=== PATIENT | male | born 1965 | race Caucasian/White ===

== ENCOUNTER 2017-12-18 08:34 | Day surgery (SDC) | payer MEDICAID ==
[2017-12-10 10:53] VITALS: BMI 32.5
[2017-12-18] MEDS ORDERED: Midazolam 2 MG/2 ML VIAL ONE (09:55)
[2017-12-18] MEDS ORDERED: Propofol 10 mg/ml Inj (20 ML) ONE ×2 (09:55→11:34)
[2017-12-18] MEDS ORDERED: ceFAZolin 1 gm in NS 2 GM/200 ML BAG IVPB ONE (10:03)
[2017-12-18] MEDS ORDERED: Rocuronium 10 mg/ml (10 ml) ONE (10:50)
[2017-12-18] MEDS ORDERED: Phenylephrine 10 mg/ml Inj ONE (10:50)
[2017-12-18] MEDS ORDERED: Lidocaine Hydrochloride 5 ML INJ ONE (10:50)
[2017-12-18] MEDS ORDERED: ePHEDrine 50 mg/ml Inj ONE (10:50)
[2017-12-18] MEDS ORDERED: Succinylcholine Chloride 20 mg/ml Syr (5 ml) IV ONE (10:50)
[2017-12-18] MEDS ORDERED: Neostigmine Methylsulfate 3mg/3ml Syringe IV ONE (11:45)
[2017-12-18] MEDS ORDERED: Oxycodone/Acetaminophen 5/325 mg Tab PO PRN (11:47)
--- NOTE | 2017-12-18 11:47 | PCM.SURG1 ---
Surgeon's Initial Post Op Note - Surgeon's Notes Surgeon: Dr. Aaron Rough Rounder: Dr. Sanz Type of Anesthesia: General Endo Pre-Operative Diagnosis: Recurrent Incisional Hernia Operative Findings: same Post-Operative Diagnosis: same Operation Performed: Incisional hernia repair, with mesh Specimen/Specimens Removed: hernia sac/old mesh Estimated Blood Loss: EBL {In ML}: 10 Blood Products Given: N/A Drains Used: No Drains Post-Op Condition: Good Date of Surgery/Procedure: 12/18/17 Time of Surgery/Procedure: 11:46
[2017-12-18] MEDS ORDERED: HYDROmorphone 0.5 mg/0.5 ml ISec ONE (11:53)
[2017-12-18] MEDS: HYDROmorphone 0.5 mg/0.5 ml ISec IVP PRN ×3 (11:55→12:33)
[2017-12-18] MEDS ORDERED: Lactated Ringer's 1,000 ML IV ONE (14:00)
[2017-12-18 15:58] VITALS: BP 150/75; PULSE 89; RESP 18; TEMP 97.8; O2SAT 98
--- NOTE | 2017-12-18 23:19 | OP ---
PROCEDURE DATE: 12/18/2017 PREOPERATIVE DIAGNOSIS: Recurrent umbilical hernia. POSTOPERATIVE DIAGNOSIS: Recurrent umbilical hernia. PROCEDURE: Repair of recurrent umbilical hernia with mesh. SURGEON: Guanako Aaron MD WASTE COLLECTOR: Dr. Sanz. TYPE OF ANESTHESIA: General. ANESTHESIA ADMINISTERED BY: Dr. Colleen CRNA DESCRIPTION OF OPERATION: With the patient in the supine position, under adequate general anesthesia, the abdomen was prepped and draped in the usual sterile manner. The patient was noted to have a curved scar along the upper edge of the umbilicus with what is felt like approximately a 2-to 3-inch fascial defect deep to this. A midline incison was made, centered at the umbilicus and extending several inches above and below and passing to the left of the edge of the umbilicus. This was taken down through the full thickness of skin. The umbilical skin was then sharply dissected off the underlying hernia sac as was the skin just above and below the area of the defect. The sac was opened and with traction from within, freed from the fascia and subcutaneous tissue circumferentially. The sac was fairly thick and appeared to consist of the previously placed mesh from the patient's previous hernia repair. There are one or two residual sutures that are visible which appeared to be possibly Dacron type sutures. There was no bowel incarcerated within the hernia at the time of surgery, and once the defect had been opened, palpations circumferentially did not reveal any adhesions to the anterior abdominal wall for distance circumferentially from the defect. When the mesh had been totally excised at the level of the abdominal wall, the defect was noted to measure approximately 3 inches with a relatively round configuration. A 5.4 x 7 inch Ventrio Hernia Patch was selected for the repair and this was placed into the defect in a vertical orientation. Sutures were placed transfascially to the outer pocket of mesh at the upper and lower ends and then circumferentially and tacks were then placed from within as far as possible to maintain full extension of the mesh with care taken that there was no folding or freezing of the edges. The defect was well covered at this point and the mesh was fixed again with additional 0 Vicryl sutures as well, and once the mesh had been completely placed, it was noted that the fascia and edges of the hernia sac would be easily approximated in a transverse direction to completely cover the mesh, and this was performed with running suture of 0 Vicryl. The subcutaneous tissue was irrigated, the base of the umbilicus was tacked down to the fascial closure with a 4-0 Vicryl suture and some of the subcutaneous tissue was reapproximated with interrupted 4-0 Vicryl sutures as well. The skin was closed with kamaljit. Dry sterile dressing was applied. The patient tolerated the procedure well and transferred to recovery room in stable condition. Estimated blood loss for the procedure was 10 mL. Guanako Aaron MD
== END 2017-12-18 16:03 | disposition home or self-care (01) ==
LOC: C.SDS 08:34
PROVIDERS: ATTEND Specialist
DX: K42.9 Umbilical hernia without obstruction or gangrene (principal)
CPT/HCPCS: 49585; 88302; C1781; J0131; J0690; J1170; J1885; J2250; J2370; J2704; J2710; J3010; J7120

== ENCOUNTER 2019-02-04 20:54 | Inpatient (IN) | payer MEDICAID ==
[2019-02-04 20:55] VITALS: BMI 32.8
--- NOTE | 2019-02-04 21:26 | C.PDOC ---
History Of Present Illness 53 yr old male w/ hx of Anxiety, Arthritis, Bronchitis, HTN, Hypercholesterolemia, ventral hernia p/w abdominal pain. Pt notes constipation, abdominal pain, nausea and vomiting. He notes x3d of constipation. He notes x2 episodes of non-bilious, non-bloody vomiting. He notes trying stool softners, enemas for his constipation without much relief. He notes that he went to see his pmd today for abdominal pain. He was given lactulose to try at home, did not take it and came to ER for further eval. He denies any other complaints. Time Seen by Provider: 02/04/19 21:26 Chief Complaint (Nursing): Abdominal Pain Past Medical History Vital Signs: Last Vital Signs Temp 98.5 F 02/04/19 21:10 Pulse 77 02/04/19 21:10 Resp 20 02/04/19 21:10 BP 147/98 H 02/04/19 21:10 Pulse Ox 97 02/04/19 21:10 Primary Care Provider: Yuriy Bahena R - Medical History PMH: Anxiety, Arthritis, Bronchitis, HTN, Hypercholesterolemia Denies: Atrial Fibrillation, CAD, Chronic Kidney Disease Surgical History: Endoscopy, Hernia Repair (ventral on 12/18/2017) Family History: States: Unknown Family Hx - Social History Hx Alcohol Use: Yes Hx Substance Use: No - Immunization History Hx Influenza Vaccination: No Review Of Systems Constitutional: Negative for: Fever, Chills, Sweats, Weakness, Malaise Eyes: Negative for: Pain, Vision Change ENT: Negative for: Ear Pain, Ear Discharge, Nose Pain, Nose Discharge, Nose Congestion, Mouth Pain, Mouth Swelling Cardiovascular: Negative for: Chest Pain, Palpitations, Orthopnea, Paroxysmal Noc. Dyspnea, Edema, Light Headedness Respiratory: Negative for: Cough, Shortness of Breath, Hemoptysis, SOB with Excertion, Pleuritic Pain Gastrointestinal: Positive for: Nausea, Abdominal Pain, Constipation. Negative for: Vomiting, Diarrhea, Melena, Hematochezia, Hematemesis Genitourinary: Negative for: Dysuria, Frequency, Incontinence, Hematuria, Penile Discharge, Scrotal Pain Musculoskeletal: Negative for: Neck Pain, Shoulder Pain Skin: Negative for: Rash, Lesions Neurological: Negative for: Weakness, Numbness, Headache Psych: Negative for: Anxiety, Depression, Psychosis, Suicidal ideation Physical Exam - Physical Exam Appears: Well, Non-toxic, No Acute Distress, Other (playing on his phone while being evaluted) Skin: Normal Color, Warm, Dry Head: Atraumatic, Normacephalic Eye(s): bilateral: Normal Inspection, PERRL, EOMI Nose: Normal, No Flaring, No Discharge Oral Mucosa: Moist Tongue: Normal Appearing Teeth: Normal Dentition Gingiva: Normal Appearing Throat: Normal, No Erythema, No Exudate, No Drooling, No Mass Neck: Normal, Normal ROM, Supple, Other (no meningeal signs) Lymphatic: Normal Exam Cardiovascular: Rhythm Regular Respiratory: Normal Breath Sounds Gastrointestinal/Abdominal: Tenderness (llq, suprapubic, mild), No Mass, No Distention, No Guarding, No Hernia, No Ascites, Other (ventral hernia repair site noted, no abnl besides scar, no signs of infection) Back: Normal Inspection, No CVA Tenderness, No Vertebral Tenderness Extremity: Normal ROM Neurological/Psych: Oriented x3, Normal Speech, Normal Cognition, Normal Cranial Nerves, No Cerebellar Signs, Normal Motor Gait: Steady ED Course And Treatment - Laboratory Results Result Diagrams: 02/05/19 20:12 02/05/19 20:12 O2 Sat by Pulse Oximetry: 97 Medical Decision Making Medical Decision Makin yr old male w hx of ventral hernia repair, constipation and nausea p/w abdominal pain non-improved w/ multiple laxitive agents. Pt in NAD, mildly ttp to LLQ and suprapubic area. No urinary complaints or back pain. No abnl penile d/c or rash. No fall or trauma. Will seek imaging and labs given non-improvement and hx of hernia. No signs of hernia incarceration / strangulation at this time. No active vomiting noted at this time. 1115 STERLING on labs, last cr 0.8, now 2.[address] to non-con pt in nad 2356 appreciate consult w/ Dr. Hamilton Kendrick: to admit to his service, he will follow up CT results pt in NAD, agreeable to plan Disposition - Disposition Disposition: HOSPITALIZED Disposition Time: 23:56 Condition: STABLE - Clinical Impression Clinical Impression: STERLING (acute kidney injury), Abdominal pain
[2019-02-04] MEDS ORDERED: Sodium Chloride 0.9% 1,000 ML ONE (22:34)
[2019-02-04] MEDS: Sodium Chloride 0.9% 1,000 ML IV SCH (22:34)
[2019-02-04 22:42] LABS: BASO % 0.6 % (0.0-2.0); EOS # 0.1 K/uL (0.0-0.7); EOS % 2.1 % (0.0-4.0); LYMPH # 1.7 K/uL (1.0-4.3); LYMPH % 24.4 % (20.0-40.0); MEAN CELL VOLUME 88.2 fL (80.0-94.0); MEAN CORPUSCULAR HEMOGLOBIN 31.1 pg (27.0-31.0); MEAN CORPUSCULAR HGB CONC 35.2 g/dL (33.0-37.0); MEAN PLATELET VOLUME 7.2 fL (7.2-11.7); MONO # 0.8 K/uL (0.0-0.8); MONO % 12.1 % (0.0-10.0); NEUT # 4.2 K/uL (1.8-7.0); NEUT % 60.8 % (50.0-75.0); NRBC % 0.1 % (0.0-2.0); RBC 4.51 Mil/uL (4.40-5.90); RED CELL DISTRIBUTION WIDTH 13.9 % (11.5-14.5); WHITE BLOOD COUNT 6.9 K/uL (4.8-10.8)
[2019-02-04 22:52] LABS: ALB/GLOB RATIO 1.5 (1.0-2.1); ALBUMIN 4.1 g/dL (3.5-5.0); CALCIUM 8.9 mg/dl (8.6-10.4)
[2019-02-05] MEDS: Sodium Chloride 0.9% 1,000 ML IV SCH ×3 (07:50→18:30)
[2019-02-05] MEDS: Pantoprazole 40 mg EC Tab PO SCH (10:15)
[2019-02-05] MEDS: Metoprolol Succinate 50 mg XL Tab PO SCH (10:15)
[2019-02-05] MEDS: Enoxaparin 30 mg Syringe SC SCH (10:15)
--- NOTE | 2019-02-05 11:04 | CT ---
Date of service: 02/05/2019 PROCEDURE: CT Abdomen and Pelvis without intravenous contrast HISTORY: COMPARISON: None. TECHNIQUE: CT scan of the abdomen and pelvis was performed without administration of intravenous contrast. Oral contrast was not administered. Coronal and sagittal reformatted images were obtained. Radiation dose: Total exam DLP = 1317.05 mGy-cm. This CT exam was performed using one or more of the following dose reduction techniques: Automated exposure control, adjustment of the mA and/or kV according to patient size, and/or use of iterative reconstruction technique. FINDINGS: LOWER THORAX: There is dependent atelectasis in the lung bases. LIVER: Mild hepatomegaly and fatty liver. No gross lesion or ductal dilatation. GALLBLADDER AND BILE DUCTS: Well distended. No calcified gallstones. No common bile duct dilatation. PANCREAS: Normal in size. No gross lesion or ductal dilatation. SPLEEN: Normal in size. ADRENALS: Normal in size. No discrete nodule. KIDNEYS AND URETERS: Both kidneys are normal in size. No hydronephrosis or nephrolithiasis. There is nonspecific perinephric fat stranding. VASCULATURE: Normal in caliber. No aortic aneurysm. There are aortic atherosclerotic calcifications present. BOWEL: Evaluation of the bowel is limited in the absence of oral contrast. The small bowel loops are normal in caliber. There is severe distension of cecum which measures 13.2 cm in diameter with air-fluid level. There is moderate dilatation of the transverse colon and normal caliber left hemicolon with air-fluid levels. The terminal ileum and ileocecal junction are normal. APPENDIX: Normal appendix. PERITONEUM: No free fluid. No free air. LYMPH NODES: No enlarged lymph nodes. BLADDER: Over distended and normal in appearance. REPRODUCTIVE: The prostate gland is normal in size. BONES: No acute fracture. Advanced multilevel degenerative disc disease in the lower lumbar spine. OTHER FINDINGS: None. IMPRESSION: Severe distension of the cecum and moderate dilatation of the ascending and transverse colon with multiple air-fluid levels which may represent nonspecific colitis or ileus. Clinical follow-up is advised. Over distended urinary bladder. A preliminary report was provided by [email or web address]. The final report is tagged to the PA review folder.
[2019-02-05 12:11] LABS: CALCIUM 8.7 mg/dl (8.6-10.4)
--- NOTE | 2019-02-05 13:27 | CP.PCM.CON ---
History of Present Illness - History of Present Illness History of Present Illness: 53 yr old male w/ hx of Anxiety, Arthritis, Bronchitis, HTN, Hypercholesterolemia, ventral hernia with abdominal pain. Pt notes constipation, abdominal pain, nausea and vomiting. He notes x3d of constipation. He notes x2 episodes of non-bilious, non-bloody vomiting. He notes trying stool softners, enemas for his constipation without much relief. He notes that he went to see his pmd today for abdominal pain. He was given lactulose to try at home, did not take it and came to ER for further eval. Has been taking high dose NSAIDs x 50-7 days- ibuprofen 800mg tid; also on losartan He denies any other complaints. - Medical History PMH: Anxiety, Arthritis, Bronchitis, HTN, Hypercholesterolemia Denies: Atrial Fibrillation, CAD, Chronic Kidney Disease Surgical History: Endoscopy, Hernia Repair (ventral on 12/18/2017) Family History: States: Unknown Family Hx, no CKD - Social History Hx Alcohol Use: Yes Hx Substance Use: No illicits- denies - Immunization History Hx Influenza Vaccination: No Review Of Systems Constitutional: Negative for: Fever, Chills, Sweats, Weakness, Malaise Eyes: Negative for: Pain, Vision Change ENT: Negative for: Ear Pain, Ear Discharge, Nose Pain, Nose Discharge, Nose Congestion, Mouth Pain, Mouth Swelling Cardiovascular: Negative for: Chest Pain, Palpitations, Orthopnea, Paroxysmal Noc. Dyspnea, Edema, Light Headedness Respiratory: Negative for: Cough, Shortness of Breath, Hemoptysis, SOB with Excertion, Pleuritic Pain Gastrointestinal: Positive for: Nausea, Abdominal Pain, Constipation. Negative for: Vomiting, Diarrhea, Melena, Hematochezia, Hematemesis Genitourinary: Negative for: Dysuria, Frequency, Incontinence, Hematuria, Penile Discharge, Scrotal Pain Musculoskeletal: Negative for: Neck Pain, Shoulder Pain Skin: Negative for: Rash, Lesions Neurological: Negative for: Weakness, Numbness, Headache Psych: Negative for: Anxiety, Depression, Psychosis, Suicidal ideation Review of Systems - Constitutional Constitutional: Fatigue, Weakness - EENT Eyes: absent: As Per HPI, Blind Spots, Blurred Vision, Change in Vision, Decreased Night Vision, Diplopia, Discharge, Dry Eye, Exophthalmos, Floaters, Irritation, Itchy Eyes, Loss of Peripheral Vision, Pain, Photophobia, Requires Corrective Lenses, Sees Flashes, Spots in Vision, Tunnel Vision, Other Visual Disturbances, Loss of Vision, Other Ears: absent: As Per HPI, Decreased Hearing, Ear Discharge, Ear Pain, Tinnitus, Abnormal Hearing, Disequilibrium, Dizziness, Other Nose/Mouth/Throat: absent: As Per HPI, Epistaxis, Nasal Congestion, Nasal Discharge, Nasal Obstruction, Nasal Trauma, Nose Pain, Post Nasal Drip, Sinus Pain, Sinus Pressure, Bleeding Gums, Change in Voice, Dental Pain, Dry Mouth, Dysphagia, Halitosis, Hoarsness, Lip Swelling, Mouth Lesions, Mouth Pain, Odynophagia, Sore Throat, Throat Swelling, Tongue Swelling, Facial Pain, Neck Pain, Neck Mass, Other - Cardiovascular Cardiovascular: Dyspnea on Exertion - Respiratory Respiratory: absent: As Per HPI, Cough, Dyspnea, Hemoptysis, Dyspnea on Exertion, Wheezing, Snoring, Stridor, Pain on Inspiration, Chest Congestion, Excessive Mucous Production, Change in Mucous Color, Pain with Coughing, Other - Gastrointestinal Gastrointestinal: As Per HPI, Nausea, Vomiting - Genitourinary Genitourinary: Voiding Freq/Small Amts - Musculoskeletal Musculoskeletal: Muscle Weakness, Myalgias - Integumentary Integumentary: absent: As Per HPI, Acne, Alopecia, Bleeding Lesions, Change in Hair, Change in Nails, Change in Pigmentation, Changing Lesions, Dry Skin, Eryt domenico, Furuncle, Hirsutism, Lesions, New Lesions, Non-Healing Lesions, Photosensitivity, Pruritus, Rash, Skin Pain, Skin Ulcer, Sores, Striae, Swelling, Unusual Bruising, Wounds, Jaundice, Other - Neurological Neurological: absent: As Per HPI, Abnormal Gait, Abnormal Hearing, Abnormal Movements, Abnormal Speech, Behavioral Changes, Burning Sensations, Confusion, Convulsions, Disequilibrium, Dizziness, Numbness, Focal Weakness, Frequent Falls, Headaches, Lack of Coordination, Loss of Vision, Memory Loss, Paresthesias, Radicular Pain, Restless Legs, Sensory Deficit, Syncope, Tingling, Tremor, Vertigo, Weakness, Other Visual Disturbances, Other Past Patient History - Infectious Disease Hx of Infectious Diseases: None - Past Medical History & Family History Past Medical History?: Yes - Past Social History Smoking Status: Former Smoker Chewing Tobacco Use: No Cigar Use: No Alcohol: Occasional Drugs: Denies Home Situation {Lives}: With Family - CARDIAC Hx Atrial Fibrillation: No Hx Hypercholesterolemia: Yes Hx Hypertension: Yes - PULMONARY Hx Bronchitis: Yes - HEENT Hx HEENT Problems: No - RENAL Hx Chronic Kidney Disease: No - ENDOCRINE/METABOLIC Hx Endocrine Disorders: No - HEMATOLOGICAL/ONCOLOGICAL Hx Blood Transfusions: No Hx Blood Transfusion Reaction: No - INTEGUMENTARY Hx Dermatological Problems: No - MUSCULOSKELETAL/RHEUMATOLOGICAL Hx Falls: No - GASTROINTESTINAL Hx Gastrointestinal Disorders: No - GENITOURINARY/GYNECOLOGICAL Hx Genitourinary Disorders: No - PSYCHIATRIC Hx Substance Use: No - SURGICAL HISTORY Hx Surgeries: No - ANESTHESIA Hx Anesthesia: Yes Hx Anesthesia Reactions: No Hx Malignant Hyperthermia: No Meds Allergies/Adverse Reactions: Allergies Allergy/AdvReac Type Severity Reaction Status Date / Time No Known Allergies Allergy Verified 02/04/19 21:20 - Medications Medications: Current Medications Enoxaparin Sodium (Lovenox) 30 mg SC DAILY [facility] Last Admin: 02/05/19 10:15 Dose: 30 mg Sodium Chloride (Sodium Chloride 0.9%) 1,000 mls @ 100 mls/hr IV .Q10H [facility] Last Admin: 02/05/19 10:16 Dose: 100 mls/hr Metoprolol Succinate (Toprol Xl) 100 mg PO DAILY [facility] Last Admin: 02/05/19 10:15 Dose: 100 mg Pantoprazole Sodium (Protonix Ec Tab) 40 mg PO DAILY [facility] Last Admin: 02/05/19 10:15 Dose: 40 mg Pneumococcal Polyvalent Vaccine (Pneumovax 23 Vaccine) 0.5 ml IM .ONCE ONE Stop: 02/07/19 10:01 Physical Exam - Constitutional Appears: No Acute Distress, Chronically Ill - Head Exam Head Exam: ATRAUMATIC, NORMAL INSPECTION - Eye Exam Eye Exam: EOMI, Normal appearance - Neck Exam Neck exam: Positive for: Normal Inspection. Negative for: Tenderness - Respiratory Exam Respiratory Exam: Clear to Auscultation Bilateral, NORMAL BREATHING PATTERN - Cardiovascular Exam Cardiovascular Exam: REGULAR RHYTHM, +S1 - GI/Abdominal Exam GI & Abdominal Exam: Soft. absent: Tenderness - Extremities Exam Extremities exam: Positive for: normal inspection. Negative for: tenderness - Neurological Exam Neurological exam: Alert, CN II-XII Intact - Skin Skin Exam: Dry, Warm Results - Vital Signs Recent Vital Signs: Last Vital Signs Temp 97.4 F L 02/05/19 07:51 Pulse 70 02/05/19 07:51 Resp 20 02/05/19 07:51 BP 141/95 H 02/05/19 07:51 Pulse Ox 97 02/05/19 07:51 - Labs Result Diagrams: 02/04/19 22:38 02/05/19 11:11 Labs: Laboratory Results - last 24 hr 02/04/19 02/04/19 02/05/19 22:38 22:38 11:11 WBC 6.9 RBC 4.51 Hgb 14.0 D Hct 39.8 MCV 88.2 MCH 31.1 H MCHC 35.2 RDW 13.9 Plt Count 265 D MPV 7.2 Neut % (Auto) 60.8 Lymph % (Auto) 24.4 [place] % (Auto) 12.1 H Eos % (Auto) 2.1 Baso % (Auto) 0.6 Neut # (Auto) 4.2 Lymph # (Auto) 1.7 [place] # (Auto) 0.8 Eos # (Auto) 0.1 Baso # (Auto) 0.0 Sodium 126 L 129 L Potassium 3.5 L 3.2 L Chloride 87 L 91 L Carbon Dioxide 25 28 Anion Gap 17 13 BUN 31 H 24 H Creatinine 2.3 H 2.0 H Est GFR ( Amer) 36 43 Est GFR (Non-Af Amer) 30 35 Random Glucose 107 114 H Calcium 8.9 8.7 Total Bilirubin 1.9 H AST 206 H D ALT 148 H Alkaline Phosphatase 78 Total Protein 6.7 Albumin 4.1 Globulin 2.7 Albumin/Globulin Ratio 1.5 Lipase 79 Assessment & Plan (1) HTN (hypertension) Status: Acute (2) NSAIDs adverse reaction Status: Acute (3) STERLING (acute kidney injury) Status: Acute - Assessment and Plan (Free Text) Assessment: STERLING due to NSAID use, dehydration, and autodysregulation from ARBs Plan: IV fluids serial chemistries check for proteinuria renal US
[2019-02-05] MEDS ORDERED: Bisacodyl 5mg EC Tab PO ONE (14:03)
[2019-02-05] MEDS ORDERED: Potassium Chloride 20 mEq ER Tab PO ONE (14:21)
--- NOTE | 2019-02-05 14:30 | US ---
Date of service: 02/05/2019 PROCEDURE: Ultrasound of the Kidneys HISTORY: Acute renal injury COMPARISON: None available. TECHNIQUE: Sonogram of the kidneys. FINDINGS: RIGHT KIDNEY: Measures: 12.5 cm. Normal in size, contour and echogenicity. No stone, solid mass lesion or hydronephrosis visualized. LEFT KIDNEY: Measures: 13.0 cm. Normal in size, contour and echogenicity. No stone, solid mass lesion or hydronephrosis visualized. OTHER FINDINGS: None. IMPRESSION: Unremarkable renal sonogram.
[2019-02-05 15:28] LABS: SQUAMOUS EPITHIAL < 1 /hpf (0-5); URINE BILIRUBIN NEGATIVE (NEGATIVE); URINE BLOOD NEGATIVE (NEGATIVE); URINE CLARITY Clear (Clear); URINE COLOR Yellow (YELLOW); URINE GLUCOSE (UA) NORMAL (Normal); URINE LEUKOCYTE ESTERASE NEG Leu/uL (Negative); URINE PROTEIN NEGATIVE (NEGATIVE); URINE UROBILINOGEN NORMAL mg/dL (0.2-1.0)
[2019-02-05 16:21] LABS: ALB/GLOB RATIO 1.3 (1.0-2.1); ALBUMIN 3.7 g/dL (3.5-5.0); BILIRUBIN,DIRECT 0.2 mg/dL (0.0-0.4)
--- NOTE | 2019-02-05 16:21 | RAD ---
Date of service: 02/05/2019 PROCEDURE: Radiographs of the chest and abdomen (obstructive series) HISTORY: abdominal pain/distension on CT COMPARISON: CT abdomen and pelvis performed on 02/05/2019 TECHNIQUE: AP radiograph of the chest, with upright and supine radiographs of the abdomen. 3 views obtained. FINDINGS: CHEST: Lungs: Clear. Cardiovascular: Normal size heart. No pulmonary vascular congestion. No aortic atherosclerotic calcification present Pleura: No pleural fluid. No pneumothorax. Other findings: None. ABDOMEN AND PELVIS: Bowel: There is redemonstration of severe distention of gas-filled cecum in the right lower quadrant. There is gas in the transverse and left hemicolon. Free air: None. Bones: Unremarkable. Other findings: None. IMPRESSION: Little interval change in severe gaseous distension of the cecum.
--- NOTE | 2019-02-05 18:52 | CP.PCM.CON ---
History of Present Illness - History of Present Illness History of Present Illness: GI Service Asked to see this 53 year old man admitted yesterday with 3 day history of lower abdominal pain and inability to move his bowels. He took Lactulose initially at home on the advice of Dr Yuriy Bahena his PCP, and had some loose BMs. Non contrast abdominal CT shows massively distended Cecum, and f/u Obstructive series shows the cecal distension is unchanged. Patient has new renal failure and elevated liver chemistries. He admits to binge alcohol drinking last week and a lot of NSAIDs taken recently. Also with hyponatremia. Patient states he had a normal colonoscopy at [facility] about 2 years ago. Seen by renal on this admission. S/P umbilical hernia reoperation in December 2017. Review of Systems - Constitutional Constitutional: absent: Fever, Weight Loss - Cardiovascular Cardiovascular: absent: Chest Pain - Respiratory Respiratory: absent: Cough, Dyspnea - Gastrointestinal Gastrointestinal: As Per HPI, Abdominal Pain, Bloating, Constipation, Nausea. absent: Hematochezia - Genitourinary Genitourinary: absent: Change in Urinary Stream Past Patient History - Infectious Disease Hx of Infectious Diseases: None - Past Medical History & Family History Past Medical History?: Yes - Past Social History Smoking Status: Former Smoker Chewing Tobacco Use: No Cigar Use: No Alcohol: Occasional Drugs: Denies Home Situation {Lives}: With Family - CARDIAC Hx Atrial Fibrillation: No Hx Hypercholesterolemia: Yes Hx Hypertension: Yes - PULMONARY Hx Bronchitis: Yes - HEENT Hx HEENT Problems: No - RENAL Hx Chronic Kidney Disease: No - ENDOCRINE/METABOLIC Hx Endocrine Disorders: No - HEMATOLOGICAL/ONCOLOGICAL Hx Blood Transfusions: No Hx Blood Transfusion Reaction: No - INTEGUMENTARY Hx Dermatological Problems: No - MUSCULOSKELETAL/RHEUMATOLOGICAL Hx Falls: No - GASTROINTESTINAL Hx Gastrointestinal Disorders: No - GENITOURINARY/GYNECOLOGICAL Hx Genitourinary Disorders: No - PSYCHIATRIC Hx Substance Use: No - SURGICAL HISTORY Hx Surgeries: No - ANESTHESIA Hx Anesthesia: Yes Hx Anesthesia Reactions: No Hx Malignant Hyperthermia: No Meds Allergies/Adverse Reactions: Allergies Allergy/AdvReac Type Severity Reaction Status Date / Time No Known Allergies Allergy Verified 02/04/19 21:20 - Medications Medications: Current Medications Enoxaparin Sodium (Lovenox) 30 mg SC DAILY [facility] Last Admin: 02/05/19 10:15 Dose: 30 mg Sodium Chloride (Sodium Chloride 0.9%) 1,000 mls @ 100 mls/hr IV .Q10H [facility] Last Admin: 02/05/19 10:16 Dose: 100 mls/hr Lactulose (Enulose) 20 gm PO BID [facility] Last Admin: 02/05/19 17:37 Dose: 20 gm Metoprolol Succinate (Toprol Xl) 100 mg PO DAILY [facility] Last Admin: 02/05/19 10:15 Dose: 100 mg Morphine Sulfate (Morphine) 2 mg IVP Q6 PRN PRN Reason: Pain, severe (8-10) Last Admin: 02/05/19 14:44 Dose: 2 mg Pantoprazole Sodium (Protonix Ec Tab) 40 mg PO DAILY [facility] Last Admin: 02/05/19 10:15 Dose: 40 mg Pneumococcal Polyvalent Vaccine (Pneumovax 23 Vaccine) 0.5 ml IM .ONCE ONE Stop: 02/07/19 10:01 Physical Exam - Constitutional Appears: Well, Non-toxic, No Acute Distress - Head Exam Head Exam: ATRAUMATIC, NORMOCEPHALIC - Eye Exam Eye Exam: Normal appearance. absent: Scleral icterus - Neck Exam Neck exam: Positive for: Normal Inspection. Negative for: Thyromegaly - Respiratory Exam Respiratory Exam: NORMAL BREATHING PATTERN - Cardiovascular Exam Cardiovascular Exam: REGULAR RHYTHM - GI/Abdominal Exam GI & Abdominal Exam: Normal Bowel Sounds, Soft. absent: Distended, Guarding, Mass, Organomegaly, Rebound, Rigid, Tenderness - Rectal Exam Rectal Exam: Deferred - Neurological Exam Neurological exam: Alert, Oriented x3 - Psychiatric Exam Psychiatric exam: Normal Affect, Normal Mood Results - Vital Signs Recent Vital Signs: Last Vital Signs Temp 97.5 F L 02/05/19 17:06 Pulse 64 02/05/19 17:06 Resp 20 02/05/19 17:06 BP 142/94 H 02/05/19 17:06 Pulse Ox 99 02/05/19 17:06 - Labs Result Diagrams: 02/04/19 22:38 02/05/19 11:11 Labs: Laboratory Results - last 24 hr 02/04/19 02/04/19 02/05/19 22:38 22:38 11:11 WBC 6.9 RBC 4.51 Hgb 14.0 D Hct 39.8 MCV 88.2 MCH 31.1 H MCHC 35.2 RDW 13.9 Plt Count 265 D MPV 7.2 Neut % (Auto) 60.8 Lymph % (Auto) 24.4 [place] % (Auto) 12.1 H Eos % (Auto) 2.1 Baso % (Auto) 0.6 Neut # (Auto) 4.2 Lymph # (Auto) 1.7 [place] # (Auto) 0.8 Eos # (Auto) 0.1 Baso # (Auto) 0.0 Sodium 126 L 129 L Potassium 3.5 L 3.2 L Chloride 87 L 91 L Carbon Dioxide 25 28 Anion Gap 17 13 BUN 31 H 24 H Creatinine 2.3 H 2.0 H Est GFR ( Amer) 36 43 Est GFR (Non-Af Amer) 30 35 Random Glucose 107 114 H Calcium 8.9 8.7 Total Bilirubin 1.9 H Direct Bilirubin AST 206 H D ALT 148 H Alkaline Phosphatase 78 Total Creatine Kinase 278 H Total Protein 6.7 Albumin 4.1 Globulin 2.7 Albumin/Globulin Ratio 1.5 Lipase 79 Urine Color Urine Clarity Urine pH Ur Specific [place] Urine Protein Urine Glucose (UA) Urine Ketones Urine Blood Urine Nitrate Urine Bilirubin Urine Urobilinogen Ur Leukocyte Esterase Urine WBC (Auto) Urine RBC (Auto) Ur Squamous Epith Cells U Random Total Protein Ur Random Sodium 02/05/19 02/05/19 02/05/19 15:08 15:08 15:08 WBC RBC Hgb Hct MCV MCH MCHC RDW Plt Count MPV Neut % (Auto) Lymph % (Auto) [place] % (Auto) Eos % (Auto) Baso % (Auto) Neut # (Auto) Lymph # (Auto) [place] # (Auto) Eos # (Auto) Baso # (Auto) Sodium Potassium Chloride Carbon Dioxide Anion Gap BUN Creatinine Est GFR ( Amer) Est GFR (Non-Af Amer) Random Glucose Calcium Total Bilirubin Direct Bilirubin AST ALT Alkaline Phosphatase Total Creatine Kinase Total Protein Albumin Globulin Albumin/Globulin Ratio Lipase Urine Color Yellow Urine Clarity Clear Urine pH 5.0 Ur Specific [place] 1.004 Urine Protein Negative Urine Glucose (UA) Normal Urine Ketones Negative Urine Blood Negative Urine Nitrate Negative Urine Bilirubin Negative Urine Urobilinogen Normal Ur Leukocyte Esterase Neg Urine WBC (Auto) 1 Urine RBC (Auto) < 1 Ur Squamous Epith Cells < 1 U Random Total Protein 13.0 H Ur Random Sodium 33 02/05/19 15:57 WBC RBC Hgb Hct MCV MCH MCHC RDW Plt Count MPV Neut % (Auto) Lymph % (Auto) [place] % (Auto) Eos % (Auto) Baso % (Auto) Neut # (Auto) Lymph # (Auto) [place] # (Auto) Eos # (Auto) Baso # (Auto) Sodium Potassium Chloride Carbon Dioxide Anion Gap BUN Creatinine Est GFR ( Amer) Est GFR (Non-Af Amer) Random Glucose Calcium Total Bilirubin 2.5 H Direct Bilirubin 0.2 AST 195 H ALT 150 H Alkaline Phosphatase 97 Total Creatine Kinase Total Protein 6.6 Albumin 3.7 Globulin 2.8 Albumin/Globulin Ratio 1.3 Lipase Urine Color Urine Clarity Urine pH Ur Specific [place] Urine Protein Urine Glucose (UA) Urine Ketones Urine Blood Urine Nitrate Urine Bilirubin Urine Urobilinogen Ur Leukocyte Esterase Urine WBC (Auto) Urine RBC (Auto) Ur Squamous Epith Cells U Random Total Protein Ur Random Sodium Assessment & Plan (1) Large bowel obstruction Assessment and Plan: Obstruction with massive cecal dilatation. Difficult to determine cause on non contrast CT study. Now with worsening electrolyte and renal function. Discussed with Dr Kendrick- patient is at risk of cecal perforation and requires stat surgical consultation. Arrangements are being made for stat consultation. Consider repeat CT with oral contrast vs. Cecal decompression either by IR or surgeon. Status: Acute (2) Nonspecific elevation of levels of transaminase and lactic acid dehydrogenase [ldh] Assessment and Plan: Normal liver chemistries 4 months ago. Likely alcoholic hepatitis at present, vs. WEIR Will monitor Status: Acute
--- NOTE | 2019-02-05 19:07 | CP.PCM.HP ---
History of Present Illness - History of Present Illness History of Present Illness: 53-year-old past medical history of ventral hernia repair with mesh by history of left wrist surgery history of anxiety history of arthritis history of bronchitis history of hypertension history of hypercholesterolemia came because of the abdominal pain with some constipations patient claims that has had nausea and vomiting only one episode as per the patient all the ER no [place] episode which is nonbloody nonbilious Patient is constipated for 3 days patient denies vomiting today patient's has a high creatinine eventually decided to be admitted by the ER doctor Patient status post KCl supplementation CT scan revealed patient has 13.2 cm of sickle distention/surgical consult call for further surgical evaluations surgery seen the patient's Patient also seen by a GI doctor follow-up with the obstructive series further sickle distentions Patient denies any fever chills hematuria headache chest pain shortness of breath Patient had normal colonoscopy at [place] about 2 years ago Present on Admission - Present on Admission Any Indicators Present on Admission: No Past Patient History - Infectious Disease Hx of Infectious Diseases: None - Past Medical History & Family History Past Medical History?: Yes - Past Social History Smoking Status: Former Smoker Chewing Tobacco Use: No Cigar Use: No Alcohol: Occasional Drugs: Denies Home Situation {Lives}: With Family - CARDIAC Hx Atrial Fibrillation: No Hx Hypercholesterolemia: Yes Hx Hypertension: Yes - PULMONARY Hx Bronchitis: Yes - HEENT Hx HEENT Problems: No - RENAL Hx Chronic Kidney Disease: No - ENDOCRINE/METABOLIC Hx Endocrine Disorders: No - HEMATOLOGICAL/ONCOLOGICAL Hx Blood Transfusions: No Hx Blood Transfusion Reaction: No - INTEGUMENTARY Hx Dermatological Problems: No - MUSCULOSKELETAL/RHEUMATOLOGICAL Hx Falls: No - GASTROINTESTINAL Hx Gastrointestinal Disorders: No - GENITOURINARY/GYNECOLOGICAL Hx Genitourinary Disorders: No - PSYCHIATRIC Hx Substance Use: No - SURGICAL HISTORY Hx Surgeries: No - ANESTHESIA Hx Anesthesia: Yes Hx Anesthesia Reactions: No Hx Malignant Hyperthermia: No Meds Allergies/Adverse Reactions: Allergies Allergy/AdvReac Type Severity Reaction Status Date / Time No Known Allergies Allergy Verified 02/04/19 21:20 Physical Exam - Constitutional Appears: Well - Head Exam Head Exam: ATRAUMATIC, NORMAL INSPECTION, NORMOCEPHALIC - Eye Exam Eye Exam: EOMI, Normal appearance, PERRL Pupil Exam: NORMAL ACCOMODATION, PERRL - ENT Exam ENT Exam: Mucous Membranes Moist, Normal Exam - Neck Exam Neck exam: Positive for: Normal Inspection - Respiratory Exam Respiratory Exam: Decreased Breath Sounds - Cardiovascular Exam Cardiovascular Exam: REGULAR RHYTHM, +S1, +S2 - GI/Abdominal Exam GI & Abdominal Exam: Diminished Bowel Sounds, Soft - Rectal Exam Rectal Exam: Deferred - Neurological Exam Neurological exam: Oriented x3 Results - Vital Signs Recent Vital Signs: Last Vital Signs Temp 97.5 F L 02/05/19 17:06 Pulse 64 02/05/19 17:06 Resp 20 02/05/19 17:06 BP 142/94 H 02/05/19 17:06 Pulse Ox 99 02/05/19 17:06 - Labs Result Diagrams: 02/06/19 07:06 02/06/19 07:06 Labs: Laboratory Results - last 24 hr 02/04/19 02/04/19 02/05/19 22:38 22:38 11:11 WBC 6.9 RBC 4.51 Hgb 14.0 D Hct 39.8 MCV 88.2 MCH 31.1 H MCHC 35.2 RDW 13.9 Plt Count 265 D MPV 7.2 Neut % (Auto) 60.8 Lymph % (Auto) 24.4 [place] % (Auto) 12.1 H Eos % (Auto) 2.1 Baso % (Auto) 0.6 Neut # (Auto) 4.2 Lymph # (Auto) 1.7 [place] # (Auto) 0.8 Eos # (Auto) 0.1 Baso # (Auto) 0.0 Sodium 126 L 129 L Potassium 3.5 L 3.2 L Chloride 87 L 91 L Carbon Dioxide 25 28 Anion Gap 17 13 BUN 31 H 24 H Creatinine 2.3 H 2.0 H Est GFR ( Amer) 36 43 Est GFR (Non-Af Amer) 30 35 Random Glucose 107 114 H Calcium 8.9 8.7 Total Bilirubin 1.9 H Direct Bilirubin AST 206 H D ALT 148 H Alkaline Phosphatase 78 Total Creatine Kinase 278 H Total Protein 6.7 Albumin 4.1 Globulin 2.7 Albumin/Globulin Ratio 1.5 Lipase 79 Urine Color Urine Clarity Urine pH Ur Specific [place] Urine Protein Urine Glucose (UA) Urine Ketones Urine Blood Urine Nitrate Urine Bilirubin Urine Urobilinogen Ur Leukocyte Esterase Urine WBC (Auto) Urine RBC (Auto) Ur Squamous Epith Cells U Random Total Protein Ur Random Sodium 02/05/19 02/05/1902/05/19 15:08 15:08 15:08 WBC RBC Hgb Hct MCV MCH MCHC RDW Plt Count MPV Neut % (Auto) Lymph % (Auto) [place] % (Auto) Eos % (Auto) Baso % (Auto) Neut # (Auto) Lymph # (Auto) [place] # (Auto) Eos # (Auto) Baso # (Auto) Sodium Potassium Chloride Carbon Dioxide Anion Gap BUN Creatinine Est GFR ( Amer) Est GFR (Non-Af Amer) Random Glucose Calcium Total Bilirubin Direct Bilirubin AST ALT Alkaline Phosphatase Total Creatine Kinase Total Protein Albumin Globulin Albumin/Globulin Ratio Lipase Urine Color Yellow Urine Clarity Clear Urine pH 5.0 Ur Specific [place] 1.004 Urine Protein Negative Urine Glucose (UA) Normal Urine Ketones Negative Urine Blood Negative Urine Nitrate Negative Urine Bilirubin Negative Urine Urobilinogen Normal Ur Leukocyte Esterase Neg Urine WBC (Auto) 1 Urine RBC (Auto) < 1 Ur Squamous Epith Cells < 1 U Random Total Protein 13.0 H Ur Random Sodium 33 02/05/19 15:57 WBC RBC Hgb Hct MCV MCH MCHC RDW Plt Count MPV Neut % (Auto) Lymph % (Auto) [place] % (Auto) Eos % (Auto) Baso % (Auto) Neut # (Auto) Lymph # (Auto) [place] # (Auto) Eos # (Auto) Baso # (Auto) Sodium Potassium Chloride Carbon Dioxide Anion Gap BUN Creatinine Est GFR ( Amer) Est GFR (Non-Af Amer) Random Glucose Calcium Total Bilirubin 2.5 H Direct Bilirubin 0.2 AST 195 H ALT 150 H Alkaline Phosphatase 97 Total Creatine Kinase Total Protein 6.6 Albumin 3.7 Globulin 2.8 Albumin/Globulin Ratio 1.3 Lipase Urine Color Urine Clarity Urine pH Ur Specific [place] Urine Protein Urine Glucose (UA) Urine Ketones Urine Blood Urine Nitrate Urine Bilirubin Urine Urobilinogen Ur Leukocyte Esterase Urine WBC (Auto) Urine RBC (Auto) Ur Squamous Epith Cells U Random Total Protein Ur Random Sodium Assessment & Plan (1) [place] (acute kidney injury) Status: Acute (2) Abdominal pain Status: Acute (3) HTN (hypertension) Status: Acute (4) Large bowel obstruction Status: Acute (5) Abnormal finding on CT scan Status: Acute (6) Chest pain Status: Acute (7) DVT prophylaxis Status: Acute (8) Gastrointestinal hemorrhage Status: Acute (9) Drug abuse, episodic use Status: Chronic (10) Hypertension Status: Chronic (11) Tobacco use Status: Chronic - Assessment and Plan (Free Text) Plan: Plan no surgical evaluations GI evaluations Obstructive series Lovenox IV fluid Lactulose Metoprolol Morphine Protonix Now potassium supplementation potassium 3.2 Creatinine 2.0 Renal evaluations Monitor CBC CMP and creatinine Follow-up CAT scan study Urgent surgical evaluation see can call stat surgical consult as patient is a high risk for the cecal perforation discussed with Dr. Brower
--- NOTE | 2019-02-05 19:47 | CP.PCM.CON ---
History of Present Illness - History of Present Illness History of Present Illness: Surgery Consult Note for Dr. Blanton Consult: Dilated cecum HPI: 53 year old male, past medical history signigicant for Crohns vs US s/p remission for 30 years, HTN, alcohol abuse, depression, who was found to have a dilated cecum of 13cm on abdominal CT scan. Patient states since last week he has been having constipation and abdominal pain. He tried miralax and lactulose which caused watery diarrhea, but no formed stools. Patient called ambulance 02/03 because pain worsening. He denies nausea or vomiting. Last colonoscopy was 2 years ago at [facility] and it was normal per patient. Denies f/c, n/v, SOB, CP, or urinary symptoms. PMH: See above PSH: Ventral hernia repair with mesh, left wrist surgery FH: Noncontributory SH: Recently started drinking alcohol again. Denies tobacco or illicit drugs. ALL: NKDA Meds: See MAR Review of Systems - Constitutional Constitutional: Weakness. absent: Chills, Fever - EENT Eyes: absent: Blurred Vision, Change in Vision Nose/Mouth/Throat: absent: Nasal Congestion, Nasal Discharge - Cardiovascular Cardiovascular: absent: Chest Pain, Dyspnea - Respiratory Respiratory: absent: Cough, Dyspnea - Gastrointestinal Gastrointestinal: Abdominal Pain, Constipation, Cramping. absent: Diarrhea, Hematochezia, Loose Stools, Melena, Nausea, Vomiting - Genitourinary Genitourinary: absent: Difficulty Urinating, Dysuria - Musculoskeletal Musculoskeletal: absent: Back Pain, Neck Pain - Integumentary Integumentary: absent: Bleeding Lesions, Changing Lesions - Neurological Neurological: absent: Confusion, Dizziness - Psychiatric Psychiatric: Anxiety. absent: Depression Past Patient History - Infectious Disease Hx of Infectious Diseases: None - Past Medical History & Family History Past Medical History?: Yes - Past Social History Smoking Status: Former Smoker Chewing Tobacco Use: No Cigar Use: No Alcohol: Occasional Drugs: Denies Home Situation {Lives}: With Family - CARDIAC Hx Atrial Fibrillation: No Hx Hypercholesterolemia: Yes Hx Hypertension: Yes - PULMONARY Hx Bronchitis: Yes - HEENT Hx HEENT Problems: No - RENAL Hx Chronic Kidney Disease: No - ENDOCRINE/METABOLIC Hx Endocrine Disorders: No - HEMATOLOGICAL/ONCOLOGICAL Hx Blood Transfusions: No Hx Blood Transfusion Reaction: No - INTEGUMENTARY Hx Dermatological Problems: No - MUSCULOSKELETAL/RHEUMATOLOGICAL Hx Falls: No - GASTROINTESTINAL Hx Gastrointestinal Disorders: No - GENITOURINARY/GYNECOLOGICAL Hx Genitourinary Disorders: No - PSYCHIATRIC Hx Substance Use: No - SURGICAL HISTORY Hx Surgeries: No - ANESTHESIA Hx Anesthesia: Yes Hx Anesthesia Reactions: No Hx Malignant Hyperthermia: No Meds Allergies/Adverse Reactions: Allergies Allergy/AdvReac Type Severity Reaction Status Date / Time No Known Allergies Allergy Verified 02/04/19 21:20 - Medications Medications: Current Medications Enoxaparin Sodium (Lovenox) 30 mg SC DAILY [facility] Last Admin: 02/05/19 10:15 Dose: 30 mg Sodium Chloride (Sodium Chloride 0.9%) 1,000 mls @ 100 mls/hr IV .Q10H [facility] Last Admin: 02/05/19 10:16 Dose: 100 mls/hr Potassium Chloride (Potassium Chloride 20 Meq/100 Ml) 20 meq in 100 mls @ 50 mls/hr IVPB ONCE ONE Stop: 02/05/19 21:03 Last Admin: 02/05/19 19:37 Dose: 50 mls/hr Lactulose (Enulose) 20 gm PO BID [facility] Last Admin: 02/05/19 17:37 Dose: 20 gm Metoprolol Succinate (Toprol Xl) 100 mg PO DAILY [facility] Last Admin: 02/05/19 10:15 Dose: 100 mg Morphine Sulfate (Morphine) 2 mg IVP Q6 PRN PRN Reason: Pain, severe (8-10) Last Admin: 02/05/19 14:44 Dose: 2 mg Pantoprazole Sodium (Protonix Ec Tab) 40 mg PO DAILY [facility] Last Admin: 02/05/19 10:15 Dose: 40 mg Pneumococcal Polyvalent Vaccine (Pneumovax 23 Vaccine) 0.5 ml IM .ONCE ONE Stop: 02/07/19 10:01 Physical Exam - Constitutional Appears: Non-toxic, No Acute Distress - Head Exam Head Exam: ATRAUMATIC, NORMAL INSPECTION, NORMOCEPHALIC - Eye Exam Eye Exam: EOMI Pupil Exam: PERRL - ENT Exam ENT Exam: Mucous Membranes Moist - Respiratory Exam Respiratory Exam: NORMAL BREATHING PATTERN. absent: Wheezes, Respiratory Distress - Cardiovascular Exam Cardiovascular Exam: REGULAR RHYTHM - GI/Abdominal Exam GI & Abdominal Exam: Normal Bowel Sounds, Soft, Tenderness. absent: Distended, Guarding, Rebound, Rigid - Rectal Exam Rectal Exam: Hemorrhoids, NORMAL INSPECTION. absent: Bloody Stool, Fecal Impaction - Extremities Exam Extremities exam: Positive for: normal inspection, pedal pulses present - Neurological Exam Neurological exam: Alert, Oriented x3 - Psychiatric Exam Psychiatric exam: Anxious - Skin Skin Exam: Dry, Intact, Normal Color, Warm Additional comments: midline surgical incision scar, well healed Results - Vital Signs Recent Vital Signs: Last Vital Signs Temp 97.5 F L 02/05/19 17:06 Pulse 64 02/05/19 17:06 Resp 20 02/05/19 17:06 BP 142/94 H 02/05/19 17:06 Pulse Ox 99 02/05/19 17:06 - Labs Result Diagrams: 02/05/19 20:12 02/05/19 20:12 Labs: Laboratory Results - last 24 hr 02/04/19 02/04/19 02/05/19 22:38 22:38 11:11 WBC 6.9 RBC 4.51 Hgb 14.0 D Hct 39.8 MCV 88.2 MCH 31.1 H MCHC 35.2 RDW 13.9 Plt Count 265 D MPV 7.2 Neut % (Auto) 60.8 Lymph % (Auto) 24.4 [place] % (Auto) 12.1 H Eos % (Auto) 2.1 Baso % (Auto) 0.6 Neut # (Auto) 4.2 Lymph # (Auto) 1.7 [place] # (Auto) 0.8 Eos # (Auto) 0.1 Baso # (Auto) 0.0 Sodium 126 L 129 L Potassium 3.5 L 3.2 L Chloride 87 L 91 L Carbon Dioxide 25 28 Anion Gap 17 13 BUN 31 H 24 H Creatinine 2.3 H 2.0 H Est GFR ( Amer) 36 43 Est GFR (Non-Af Amer) 30 35 Random Glucose 107 114 H Calcium 8.9 8.7 Total Bilirubin 1.9 H Direct Bilirubin AST 206 H D ALT 148 H Alkaline Phosphatase 78 Total Creatine Kinase 278 H Total Protein 6.7 Albumin 4.1 Globulin 2.7 Albumin/Globulin Ratio 1.5 Lipase 79 Urine Color Urine Clarity Urine pH Ur Specific [place] Urine Protein Urine Glucose (UA) Urine Ketones Urine Blood Urine Nitrate Urine Bilirubin Urine Urobilinogen Ur Leukocyte Esterase Urine WBC (Auto) Urine RBC (Auto) Ur Squamous Epith Cells U Random Total Protein Ur Random Sodium 02/05/19 02/05/1902/05/19 15:08 15:08 15:08 WBC RBC Hgb Hct MCV MCH MCHC RDW Plt Count MPV Neut % (Auto) Lymph % (Auto) [place] % (Auto) Eos % (Auto) Baso % (Auto) Neut # (Auto) Lymph # (Auto) [place] # (Auto) Eos # (Auto) Baso # (Auto) Sodium Potassium Chloride Carbon Dioxide Anion Gap BUN Creatinine Est GFR ( Amer) Est GFR (Non-Af Amer) Random Glucose Calcium Total Bilirubin Direct Bilirubin AST ALT Alkaline Phosphatase Total Creatine Kinase Total Protein Albumin Globulin Albumin/Globulin Ratio Lipase Urine Color Yellow Urine Clarity Clear Urine pH 5.0 Ur Specific [place] 1.004 Urine Protein Negative Urine Glucose (UA) Normal Urine Ketones Negative Urine Blood Negative Urine Nitrate Negative Urine Bilirubin Negative Urine Urobilinogen Normal Ur Leukocyte Esterase Neg Urine WBC (Auto) 1 Urine RBC (Auto) < 1 Ur Squamous Epith Cells < 1 U Random Total Protein 13.0 H Ur Random Sodium 33 02/05/19 15:57 WBC RBC Hgb Hct MCV MCH MCHC RDW Plt Count MPV Neut % (Auto) Lymph % (Auto) [place] % (Auto) Eos % (Auto) Baso % (Auto) Neut # (Auto) Lymph # (Auto) [place] # (Auto) Eos # (Auto) Baso # (Auto) Sodium Potassium Chloride Carbon Dioxide Anion Gap BUN Creatinine Est GFR ( Amer) Est GFR (Non-Af Amer) Random Glucose Calcium Total Bilirubin 2.5 H Direct Bilirubin 0.2 AST 195 H ALT 150 H Alkaline Phosphatase 97 Total Creatine Kinase Total Protein 6.6 Albumin 3.7 Globulin 2.8 Albumin/Globulin Ratio 1.3 Lipase Urine Color Urine Clarity Urine pH Ur Specific [place] Urine Protein Urine Glucose (UA) Urine Ketones Urine Blood Urine Nitrate Urine Bilirubin Urine Urobilinogen Ur Leukocyte Esterase Urine WBC (Auto) Urine RBC (Auto) Ur Squamous Epith Cells U Random Total Protein Ur Random Sodium Assessment & Plan - Assessment and Plan (Free Text) Assessment: 53M w/ ileus CTAP showing dilated cecum, measuring 13cm Plan: NPO IVF Antiemetics and analgesics PRN Stat labs - CBC, CMP, ABG, Mg, Phos Serial abdominal exams Monitor bowel function FU repeat CTAP w/ contrast Possible OR - will keep patient NPO D/w Dr. Franny Crawley PGY1
[2019-02-05 20:17] LABS: BASO % 0.8 % (0.0-2.0); EOS # 0.2 K/uL (0.0-0.7); EOS % 3.2 % (0.0-4.0); HEMOGLOBIN 13.2 g/dL (12.0-18.0); LYMPH # 1.6 K/uL (1.0-4.3); LYMPH % 27.9 % (20.0-40.0); MEAN CORPUSCULAR HEMOGLOBIN 30.9 pg (27.0-31.0); MEAN CORPUSCULAR HGB CONC 35.9 g/dL (33.0-37.0); MEAN PLATELET VOLUME 6.8 fL (7.2-11.7); MONO # 0.5 K/uL (0.0-0.8); MONO % 8.8 % (0.0-10.0); NEUT # 3.5 K/uL (1.8-7.0); NEUT % 59.3 % (50.0-75.0); RBC 4.26 Mil/uL (4.40-5.90); RED CELL DISTRIBUTION WIDTH 13.7 % (11.5-14.5); WHITE BLOOD COUNT 5.8 K/uL (4.8-10.8)
[2019-02-05 20:28] LABS: ABG ALLEN TEST POS; ARTERIAL BLOOD GAS HCO3 26.1 mmol/L (21-28); ARTERIAL BLOOD GAS O2 SAT 95.4 % (95-98); ARTERIAL BLOOD GAS PCO2 38 mm/Hg (35-45); ARTERIAL BLOOD GAS PH 7.44 (7.35-7.45); ARTERIAL BLOOD GAS PO2 59 mm/Hg (80-100)
[2019-02-05] MEDS: Lactated Ringer's 1,000 ML IV SCH (20:30)
[2019-02-05 20:33] LABS: ALB/GLOB RATIO 1.3 (1.0-2.1); ALBUMIN 3.6 g/dL (3.5-5.0); CALCIUM 8.3 mg/dl (8.6-10.4)
[2019-02-05] MEDS ORDERED: Iohexol 240 (50 ml) PO ONE (22:00)
[2019-02-06] MEDS: Lactated Ringer's 1,000 ML IV SCH ×2 (03:00→09:46)
[2019-02-06 07:17] LABS: BASO % 0.8 % (0.0-2.0); EOS # 0.2 K/uL (0.0-0.7); EOS % 3.5 % (0.0-4.0); HEMOGLOBIN 12.9 g/dL (12.0-18.0); LYMPH # 1.6 K/uL (1.0-4.3); LYMPH % 31.2 % (20.0-40.0); MEAN CELL VOLUME 86.7 fL (80.0-94.0); MEAN CORPUSCULAR HEMOGLOBIN 31.1 pg (27.0-31.0); MEAN CORPUSCULAR HGB CONC 35.9 g/dL (33.0-37.0); MEAN PLATELET VOLUME 7.6 fL (7.2-11.7); MONO # 0.6 K/uL (0.0-0.8); MONO % 11.1 % (0.0-10.0); NEUT # 2.7 K/uL (1.8-7.0); NEUT % 53.4 % (50.0-75.0); RBC 4.16 Mil/uL (4.40-5.90); RED CELL DISTRIBUTION WIDTH 13.7 % (11.5-14.5)
[2019-02-06 08:16] LABS: PARTIAL THROMBOPLASTIN TIME 31.2 SECONDS (21-34); PROTHROMBIN TIME 10.6 SECONDS (9.7-12.2)
--- NOTE | 2019-02-06 08:47 | CP.PCM.PN ---
Subjective - Date & Time of Evaluation Date of Evaluation: 02/06/19 Time of Evaluation: 07:00 - Subjective Subjective: abd discomfrt in lower side of abd no nasuea or vomitting s/p surg and s/p gi no family bedside Objective - Vital Signs/Intake and Output Vital Signs (last 24 hours): Temp Pulse Resp BP Pulse Ox 98.2 F 62 20 152/92 H 96 02/06/19 07:39 02/06/19 07:39 02/06/19 07:39 02/06/19 07:39 02/06/19 07:39 Intake and Output: 02/06/19 02/06/19 06:59 18:59 Intake Total 2600 Balance 2600 - Medications Medications: Current Medications Enoxaparin Sodium (Lovenox) 30 mg SC DAILY [facility] Last Admin: 02/05/19 10:15 Dose: 30 mg Lactated Ringer's (Lactated Ringer's) 1,000 mls @ 150 mls/hr IV .Q6H40M [facility] Last Admin: 02/06/19 03:00 Dose: 150 mls/hr Lactulose (Enulose) 20 gm PO BID [facility] Last Admin: 02/05/19 17:37 Dose: 20 gm Metoprolol Succinate (Toprol Xl) 100 mg PO DAILY [facility] Last Admin: 02/05/19 10:15 Dose: 100 mg Morphine Sulfate (Morphine) 2 mg IVP Q6 PRN PRN Reason: Pain, severe (8-10) Last Admin: 02/05/19 14:44 Dose: 2 mg Pantoprazole Sodium (Protonix Ec Tab) 40 mg PO DAILY [facility] Last Admin: 02/05/19 10:15 Dose: 40 mg Pneumococcal Polyvalent Vaccine (Pneumovax 23 Vaccine) 0.5 ml IM .ONCE ONE Stop: 02/07/19 10:01 - Labs Labs: 02/06/19 07:06 02/05/19 20:12 PT 10.6 SECONDS (9.7-12.2) 02/06/19 08:02 INR 1.0 02/06/19 08:02 APTT 31.2 SECONDS (21-34) 02/06/19 08:02 - Constitutional Appears: Well - Head Exam Head Exam: ATRAUMATIC, NORMAL INSPECTION, NORMOCEPHALIC - Eye Exam Eye Exam: EOMI, Normal appearance, PERRL Pupil Exam: NORMAL ACCOMODATION, PERRL - ENT Exam ENT Exam: Mucous Membranes Moist, Normal Exam - Neck Exam Neck Exam: Full ROM, Normal Inspection. absent: Lymphadenopathy - Respiratory Exam Respiratory Exam: Decreased Breath Sounds - Cardiovascular Exam Cardiovascular Exam: REGULAR RHYTHM, +S1, +S2 - GI/Abdominal Exam GI & Abdominal Exam: Soft, Diminished Bowel Sounds - Rectal Exam Rectal Exam: Deferred - Neurological Exam Neurological Exam: Oriented x3 Assessment and Plan - Assessment and Plan (Free Text) Plan: Follow-up with the surgery Follow-up with GI doctor Follow-up with the renal doctor Hemoglobin is 12.9 WBC is 5.6 Magnesium is 1.5 today CBC CMP tomorrow Surgical evaluations signi improvement in pain afer bowel movement pt refuses to have surg although pt is imroved
--- NOTE | 2019-02-06 09:02 | CT ---
Date of service: 02/05/2019 PROCEDURE: CT Abdomen and Pelvis with contrast HISTORY: Dialated Cecum; rule out obstruction COMPARISON: 02/05/2019. TECHNIQUE: CT scan of the abdomen and pelvis was performed without administration of intravenous contrast. Oral contrast was administered. Coronal and sagittal reformatted images were obtained. Contrast dose: Radiation dose: Total exam DLP = 1612.8 mGy-cm. This CT exam was performed using one or more of the following dose reduction techniques: Automated exposure control, adjustment of the mA and/or kV according to patient size, and/or use of iterative reconstruction technique. FINDINGS: LOWER THORAX: The visualized lungs are clear. LIVER: Mild hepatomegaly and fatty liver. No intrahepatic ductal dilatation. GALLBLADDER AND BILE DUCTS: Well distended. No calcified gallstones, wall thickening or pericholecystic fluid. PANCREAS: Normal in size with homogeneous enhancement. No gross lesion or ductal dilatation. SPLEEN: Normal in size and appearance. ADRENALS: No discrete nodule. KIDNEYS AND URETERS: Normal in size with homogeneous enhancement. No hydronephrosis. No solid mass. VASCULATURE: No aortic aneurysm. There are aortic atherosclerotic calcifications present. BOWEL: The small bowel loops are normal in caliber. There has been interval decompression of the cecum which remains moderately dilated and measures 7 cm in diameter. There is fecal material and air fluid level in the cecum. The remaining colon is essentially decompressed.. No bowel wall thickening or obstruction. APPENDIX: Normal appendix. PERITONEUM: No free fluid. No free air. LYMPH NODES: No enlarged lymph nodes. BLADDER: Well distended and normal in appearance. REPRODUCTIVE: The prostate gland is normal in size. BONES: No acute fracture. Multilevel degenerative changes in the lower lumbar spine. There are scattered sclerotic foci in the pelvis and left proximal femur statistically most compatible with bone islands. OTHER FINDINGS: There is a small fat containing right periumbilical hernia IMPRESSION: Interval decompression of the cecum which now measures 7 cm and is moderately dilated with an air-fluid level. The small bowel loops and remaining colon is essentially decompressed. No evidence for bowel obstruction.
--- NOTE | 2019-02-06 09:33 | CP.PCM.PN ---
Subjective - Date & Time of Evaluation Date of Evaluation: 02/06/19 Time of Evaluation: 07:30 - Subjective Subjective: General Surgery Note for Dr. Blanton Patient seen and examined at bedside. No acute event overnight. Patient denies abd pain. He admits to passing flatus. Patient reports improvement in distention. Patient does not want to have surgery if needed at this time. Denies fever/chills, cp, SOB, n/v/d. Objective - Vital Signs/Intake and Output Vital Signs (last 24 hours): Temp Pulse Resp BP Pulse Ox 98.2 F 62 20 152/92 H 96 02/06/19 07:39 02/06/19 07:39 02/06/19 07:39 02/06/19 07:39 02/06/19 07:39 Intake and Output: 02/06/19 02/06/19 06:59 18:59 Intake Total 2600 Balance 2600 - Medications Medications: Current Medications Enoxaparin Sodium (Lovenox) 30 mg SC DAILY [facility] Last Admin: 02/05/19 10:15 Dose: 30 mg Lactated Ringer's (Lactated Ringer's) 1,000 mls @ 150 mls/hr IV .Q6H40M [facility] Last Admin: 02/06/19 03:00 Dose: 150 mls/hr Magnesium Sulfate/Dextrose (Magnesium Sulfate 1 Gm/100 Ml D5w) 1 gm in 100 mls @ 300 mls/hr IVPB Q30M [facility] Stop: 02/06/19 10:19 Lactulose (Enulose) 20 gm PO BID [facility] Last Admin: 02/05/19 17:37 Dose: 20 gm Metoprolol Succinate (Toprol Xl) 100 mg PO DAILY [facility] Last Admin: 02/05/19 10:15 Dose: 100 mg Morphine Sulfate (Morphine) 2 mg IVP Q6 PRN PRN Reason: Pain, severe (8-10) Last Admin: 02/05/19 14:44 Dose: 2 mg Pantoprazole Sodium (Protonix Ec Tab) 40 mg PO DAILY [facility] Last Admin: 02/05/19 10:15 Dose: 40 mg Pneumococcal Polyvalent Vaccine (Pneumovax 23 Vaccine) 0.5 ml IM .ONCE ONE Stop: 02/07/19 10:01 - Labs Labs: 02/06/19 07:06 02/05/19 20:12 PT 10.6 SECONDS (9.7-12.2) 02/06/19 08:02 INR 1.0 02/06/19 08:02 APTT 31.2 SECONDS (21-34) 02/06/19 08:02 - Additional Findings Additional findings: - Constitutional Appears: Non-toxic, No Acute Distress - Head Exam Head Exam: ATRAUMATIC, NORMAL INSPECTION, NORMOCEPHALIC - Eye Exam Eye Exam: EOMI Pupil Exam: PERRL - ENT Exam ENT Exam: Mucous Membranes Moist - Respiratory Exam Respiratory Exam: NORMAL BREATHING PATTERN. absent: Wheezes, Respiratory Distress - Cardiovascular Exam Cardiovascular Exam: REGULAR RHYTHM - GI/Abdominal Exam GI & Abdominal Exam: Normal Bowel Sounds, Soft. absent: Distended, Guarding, Rebound, Rigid, Tenderness. incision hernia, reducible - Rectal Exam Rectal Exam: Hemorrhoids, NORMAL INSPECTION. absent: Bloody Stool, Fecal Impaction - Extremities Exam Extremities exam: Positive for: normal inspection, pedal pulses present - Neurological Exam Neurological exam: Alert, Oriented x3 - Psychiatric Exam Psychiatric exam: Anxious - Skin Skin Exam: Dry, Intact, Normal Color, Warm Additional comments: midline surgical incision scar, well healed Assessment and Plan - Assessment and Plan (Free Text) Assessment: 53M with ileus CTAP showing dilated cecum, measuring 13cm Plan: CLD, ADAT IVF Antiemetics and analgesics PRN Possible suppository or enema today Serial abdominal exams Monitor bowel function Further recommendations as per Dr. Franny Hernandez PGY2
[2019-02-06] MEDS: Magnesium Sulfate 1 gm in D5W 1 GM/100 ML BAG IVPB SCH ×2 (09:35→10:49)
[2019-02-06] MEDS: Metoprolol Succinate 50 mg XL Tab PO SCH (09:49)
[2019-02-06] MEDS: Enoxaparin 30 mg Syringe SC SCH (09:51)
[2019-02-06] MEDS: Pantoprazole 40 mg EC Tab PO SCH (09:52)
--- NOTE | 2019-02-06 09:52 | CP.PCM.PN ---
Subjective - Date & Time of Evaluation Date of Evaluation: 02/06/19 Time of Evaluation: 09:49 - Subjective Subjective: less abdominal pains STERLING better- creat decreased to 1.8 Na still low- on RL fluids GI, surgery notes noted Objective - Vital Signs/Intake and Output Vital Signs (last 24 hours): Temp Pulse Resp BP Pulse Ox 98.2 F 62 20 152/92 H 96 02/06/19 07:39 02/06/19 07:39 02/06/19 07:39 02/06/19 07:39 02/06/19 07:39 Intake and Output: 02/06/19 02/06/19 06:59 18:59 Intake Total 2600 Balance 2600 - Medications Medications: Current Medications Enoxaparin Sodium (Lovenox) 30 mg SC DAILY [facility] Last Admin: 02/05/19 10:15 Dose: 30 mg Lactated Ringer's (Lactated Ringer's) 1,000 mls @ 150 mls/hr IV .Q6H40M [facility] Last Admin: 02/06/19 09:46 Dose: 150 mls/hr Magnesium Sulfate/Dextrose (Magnesium Sulfate 1 Gm/100 Ml D5w) 1 gm in 100 mls @ 300 mls/hr IVPB Q30M [facility] Stop: 02/06/19 10:19 Last Admin: 02/06/19 09:35 Dose: 300 mls/hr Lactulose (Enulose) 20 gm PO BID [facility] Last Admin: 02/05/19 17:37 Dose: 20 gm Metoprolol Succinate (Toprol Xl) 100 mg PO DAILY [facility] Last Admin: 02/05/19 10:15 Dose: 100 mg Morphine Sulfate (Morphine) 2 mg IVP Q6 PRN PRN Reason: Pain, severe (8-10) Last Admin: 02/05/19 14:44 Dose: 2 mg Pantoprazole Sodium (Protonix Ec Tab) 40 mg PO DAILY [facility] Last Admin: 02/05/19 10:15 Dose: 40 mg Pneumococcal Polyvalent Vaccine (Pneumovax 23 Vaccine) 0.5 ml IM .ONCE ONE Stop: 02/07/19 10:01 - Labs Labs: 02/06/19 07:06 02/05/19 20:12 PT 10.6 SECONDS (9.7-12.2) 02/06/19 08:02 INR 1.0 02/06/19 08:02 APTT 31.2 SECONDS (21-34) 02/06/19 08:02 - Constitutional Appears: No Acute Distress, Chronically Ill - Head Exam Head Exam: ATRAUMATIC, NORMAL INSPECTION - Eye Exam Eye Exam: EOMI, Normal appearance - Neck Exam Neck Exam: Normal Inspection. absent: Tenderness - Respiratory Exam Respiratory Exam: Clear to Ausculation Bilateral, NORMAL BREATHING PATTERN - Cardiovascular Exam Cardiovascular Exam: REGULAR RHYTHM, +S1 - GI/Abdominal Exam GI & Abdominal Exam: Soft. absent: Tenderness - Extremities Exam Extremities Exam: Normal Inspection. absent: Tenderness - Neurological Exam Neurological Exam: Awake, CN II-XII Intact - Skin Skin Exam: Dry, Warm Assessment and Plan (1) HTN (hypertension) Status: Acute (2) NSAIDs adverse reaction Status: Acute (3) STERLING (acute kidney injury) Status: Acute (4) Hyponatremia Status: Acute - Assessment and Plan (Free Text) Plan: change fluids to NS hyponatremia eval serial chemistries surgical follow up
[2019-02-06 10:31] LABS: ALB/GLOB RATIO 1.3 (1.0-2.1); ALBUMIN 3.4 g/dL (3.5-5.0); ALT/SGPT 97 U/L (21-72); AST/SGOT 90 U/L (17-59); BLOOD UREA NITROGEN 13 mg/dL (9-20); CALCIUM 8.4 mg/dl (8.6-10.4); GFR NON-AFRICAN AMERICAN 58; URIC ACID 8.5 mg/dL (3.5-8.5)
--- NOTE | 2019-02-06 12:45 | CP.PCM.PN ---
Subjective - Date & Time of Evaluation Date of Evaluation: 02/06/19 Time of Evaluation: 12:20 - Subjective Subjective: f/u abd pain. Reports feeling better. Passing stool and gas per rectum. Less distended. Denies fever, chills, Rb, melena, OSEGUERA, cough, hematuria, hemoptysis Objective - Vital Signs/Intake and Output Vital Signs (last 24 hours): Temp Pulse Resp BP Pulse Ox 98.2 F 62 20 152/92 H 96 02/06/19 07:39 02/06/19 07:39 02/06/19 07:39 02/06/19 07:39 02/06/19 07:39 Intake and Output: 02/06/19 02/06/19 06:59 18:59 Intake Total 2600 Balance 2600 - Medications Medications: Current Medications Enoxaparin Sodium (Lovenox) 30 mg SC DAILY [facility] Last Admin: 02/06/19 09:51 Dose: Not Given Potassium Chloride 20 meq/ (Sodium Chloride) 1,010 mls @ 125 mls/hr IV .Q8H5M [facility] Last Admin: 02/06/19 10:52 Dose: 125 mls/hr Lactulose (Enulose) 20 gm PO BID [facility] Last Admin: 02/06/19 09:51 Dose: Not Given Metoprolol Succinate (Toprol Xl) 100 mg PO DAILY [facility] Last Admin: 02/06/19 09:49 Dose: 100 mg Morphine Sulfate (Morphine) 2 mg IVP Q6 PRN PRN Reason: Pain, severe (8-10) Last Admin: 02/05/19 14:44 Dose: 2 mg Pantoprazole Sodium (Protonix Ec Tab) 40 mg PO DAILY [facility] Last Admin: 02/06/19 09:52 Dose: Not Given Pneumococcal Polyvalent Vaccine (Pneumovax 23 Vaccine) 0.5 ml IM .ONCE ONE Stop: 02/07/19 10:01 - Labs Labs: 02/06/19 07:06 02/06/19 07:06 PT 10.6 SECONDS (9.7-12.2) 02/06/19 08:02 INR 1.0 02/06/19 08:02 APTT 31.2 SECONDS (21-34) 02/06/19 08:02 - Constitutional Appears: Well - Respiratory Exam Respiratory Exam: Clear to Ausculation Bilateral - Cardiovascular Exam Cardiovascular Exam: RRR - GI/Abdominal Exam GI & Abdominal Exam: Distended, Soft, Tenderness, Normal Bowel Sounds. absent: Guarding, Mass, Rebound Additional comments: mild mid tenderness Assessment and Plan (1) STERLING (acute kidney injury) Status: Acute (2) Abdominal pain Status: Acute (3) HTN (hypertension) Status: Acute (4) Hyponatremia Status: Acute (5) Large bowel obstruction Assessment & Plan: colon ileus. Consider constipation. Now having BMs. Pt reports "colitis" 30 yrs ago- but sounds more like IBS. Rec- laxatives. COLONOSCOPY as outpatient. Status: Acute (6) Nonspecific elevation of levels of transaminase and lactic acid dehydrogenase [ldh] Status: Acute (7) Abnormal finding on CT scan Status: Acute
[2019-02-06] MEDS ORDERED: Potassium Chloride 20 mEq ER Tab PO ONE (13:56)
[2019-02-06 14:47] LABS: OSMOLALITY,URINE 143 mosm/kg (300-1000)
[2019-02-06] MEDS: Aluminum Hydroxide/Magnesium Hydroxide Susp (30 mL) PO PRN (21:14)
[2019-02-07] MEDS: Aluminum Hydroxide/Magnesium Hydroxide Susp (30 mL) PO PRN (02:35)
--- NOTE | 2019-02-07 07:45 | CP.PCM.PN ---
Subjective - Date & Time of Evaluation Date of Evaluation: 02/07/19 - Subjective Subjective: Patient positive stool Abdominal pain has significantly decreased Patient passes a gas patient does not want the surgery has significantly improved Objective - Vital Signs/Intake and Output Vital Signs (last 24 hours): Temp Pulse Resp BP Pulse Ox 97.5 F L 77 20 151/89 H 97 02/07/19 00:00 02/07/19 06:00 02/07/19 06:00 02/07/19 06:00 02/07/19 06:00 Intake and Output: 02/07/19 02/07/19 06:59 18:59 Intake Total 2500 400 Balance 2500 400 - Medications Medications: Current Medications Al Hydrox/Mg Hydrox/Simethicone (Maalox 30 Ml) 30 ml PO Q6H PRN PRN Reason: Indigestion / Heartburn Last Admin: 02/07/19 02:35 Dose: 30 ml Amlodipine Besylate (Norvasc) 5 mg PO DAILY [facility] Last Admin: 02/06/19 16:31 Dose: 5 mg Enoxaparin Sodium (Lovenox) 30 mg SC DAILY [facility] Last Admin: 02/06/19 09:51 Dose: Not Given Lactulose (Enulose) 20 gm PO BID [facility] Last Admin: 02/06/19 17:21 Dose: 20 gm Metoprolol Succinate (Toprol Xl) 100 mg PO DAILY [facility] Morphine Sulfate (Morphine) 2 mg IVP Q6 PRN PRN Reason: Pain, severe (8-10) Last Admin: 02/07/19 01:05 Dose: 2 mg Pantoprazole Sodium (Protonix Ec Tab) 40 mg PO DAILY [facility] Last Admin: 02/06/19 09:52 Dose: Not Given Pneumococcal Polyvalent Vaccine (Pneumovax 23 Vaccine) 0.5 ml IM .ONCE ONE Stop: 02/07/19 10:01 - Labs Labs: 02/06/19 07:06 02/06/19 07:06 PT 10.6 SECONDS (9.7-12.2) 02/06/19 08:02 INR 1.0 02/06/19 08:02 APTT 31.2 SECONDS (21-34) 02/06/19 08:02
--- NOTE | 2019-02-07 08:01 | CP.PCM.PN ---
Subjective - Date & Time of Evaluation Date of Evaluation: 02/07/19 Time of Evaluation: 08:07 - Subjective Subjective: General Surgery Note for Dr. Blanton Patient seen and examined at bedside. No acute event overnight. Patient denies abd pain. He admits to passing flatus and having multiple BMs yesterday into today. Patient tolerating liquid diet and requesting real food. Denies fever/chills, cp, SOB, n/v/d. Objective - Vital Signs/Intake and Output Vital Signs (last 24 hours): Temp Pulse Resp BP Pulse Ox 98.2 F 74 20 190/110 H 99 02/07/19 07:47 02/07/19 07:47 02/07/19 07:47 02/07/19 07:47 02/07/19 07:47 Intake and Output: 02/07/19 02/07/19 06:59 18:59 Intake Total 2500 400 Balance 2500 400 - Medications Medications: Current Medications Acetaminophen (Tylenol 325mg Tab) 650 mg PO STAT [facility] Stop: 02/07/19 08:01 Al Hydrox/Mg Hydrox/Simethicone (Maalox 30 Ml) 30 ml PO Q6H PRN PRN Reason: Indigestion / Heartburn Last Admin: 02/07/19 02:35 Dose: 30 ml Amlodipine Besylate (Norvasc) 5 mg PO DAILY [facility] Last Admin: 02/06/19 16:31 Dose: 5 mg Enoxaparin Sodium (Lovenox) 30 mg SC DAILY [facility] Last Admin: 02/06/19 09:51 Dose: Not Given Lactulose (Enulose) 20 gm PO BID [facility] Last Admin: 02/06/19 17:21 Dose: 20 gm Metoprolol Succinate (Toprol Xl) 100 mg PO Q24H [facility] Morphine Sulfate (Morphine) 2 mg IVP Q6 PRN PRN Reason: Pain, severe (8-10) Last Admin: 02/07/19 01:05 Dose: 2 mg Pantoprazole Sodium (Protonix Ec Tab) 40 mg PO DAILY [facility] Last Admin: 02/06/19 09:52 Dose: Not Given Pneumococcal Polyvalent Vaccine (Pneumovax 23 Vaccine) 0.5 ml IM .ONCE ONE Stop: 02/07/19 10:01 - Labs Labs: 02/06/19 07:06 02/06/19 07:06 PT 10.6 SECONDS (9.7-12.2) 02/06/19 08:02 INR 1.0 02/06/19 08:02 APTT 31.2 SECONDS (21-34) 02/06/19 08:02 - Additional Findings Additional findings: - Constitutional Appears: Non-toxic, No Acute Distress - Head Exam Head Exam: ATRAUMATIC, NORMAL INSPECTION, NORMOCEPHALIC - Eye Exam Eye Exam: EOMI Pupil Exam: PERRL - ENT Exam ENT Exam: Mucous Membranes Moist - Respiratory Exam Respiratory Exam: NORMAL BREATHING PATTERN. absent: Wheezes, Respiratory Distress - Cardiovascular Exam Cardiovascular Exam: REGULAR RHYTHM - GI/Abdominal Exam GI & Abdominal Exam: Normal Bowel Sounds, Soft. absent: Distended, Guarding, Rebound, Rigid, Tenderness. incision hernia, reducible - Extremities Exam Extremities exam: Positive for: normal inspection, pedal pulses present - Neurological Exam Neurological exam: Alert, Oriented x3 - Psychiatric Exam Psychiatric exam: Anxious - Skin Skin Exam: Dry, Intact, Normal Color, Warm Additional comments: midline surgical incision scar, well healed Assessment and Plan - Assessment and Plan (Free Text) Assessment: 53M with ileus CTAP showing dilated cecum, measuring 13cm Plan: Regular diet Encourage OOB/ambulation as tolerated bowel regimen Patient clear for discharge from surgical standpoint if tolerating diet Medical management as per primary Discussed with Dr. Franny Hernandez PGY2
[2019-02-07] MEDS: Metoprolol Succinate 100 mg XL Tab PO SCH (08:09)
[2019-02-07] MEDS: Pantoprazole 40 mg EC Tab PO SCH (09:58)
[2019-02-07] MEDS: Enoxaparin 30 mg Syringe SC SCH (09:58)
[2019-02-07] MEDS ORDERED: Pneumococcal 23-Valent Vaccine IM ONE (10:00)
[2019-02-07 11:17] LABS: ALB/GLOB RATIO 1.3 (1.0-2.1); ALBUMIN 3.9 g/dL (3.5-5.0); ALT/SGPT 96 U/L (21-72); AST/SGOT 87 U/L (17-59); BLOOD UREA NITROGEN 8 mg/dL (9-20); CALCIUM 8.8 mg/dl (8.6-10.4); GFR NON-AFRICAN AMERICAN > 60
--- NOTE | 2019-02-07 11:24 | CP.PCM.PN ---
Subjective - Date & Time of Evaluation Date of Evaluation: 02/07/19 Time of Evaluation: 11:22 - Subjective Subjective: feels better still with mild abdominal pains BP meds adjusted- BP better STERLING has resolved Na 129; uosm low- not SIADH recommend po fluid restriction Objective - Vital Signs/Intake and Output Vital Signs (last 24 hours): Temp Pulse Resp BP Pulse Ox 98.2 F 74 20 143/83 99 02/07/19 07:47 02/07/19 07:47 02/07/19 07:47 02/07/19 09:00 02/07/19 07:47 Intake and Output: 02/07/19 02/07/19 06:59 18:59 Intake Total 2500 400 Balance 2500 400 - Medications Medications: Current Medications Al Hydrox/Mg Hydrox/Simethicone (Maalox 30 Ml) 30 ml PO Q6H PRN PRN Reason: Indigestion / Heartburn Last Admin: 02/07/19 02:35 Dose: 30 ml Amlodipine Besylate (Norvasc) 5 mg PO DAILY [facility] Last Admin: 02/07/19 09:59 Dose: Not Given Enoxaparin Sodium (Lovenox) 30 mg SC DAILY [facility] Last Admin: 02/07/19 09:58 Dose: 30 mg Lactulose (Enulose) 20 gm PO BID [facility] Last Admin: 02/07/19 09:58 Dose: 20 gm Metoprolol Succinate (Toprol Xl) 100 mg PO Q24H [facility] Last Admin: 02/07/19 08:09 Dose: 100 mg Morphine Sulfate (Morphine) 2 mg IVP Q6 PRN PRN Reason: Pain, severe (8-10) Last Admin: 02/07/19 10:01 Dose: 2 mg Pantoprazole Sodium (Protonix Ec Tab) 40 mg PO DAILY [facility] Last Admin: 02/07/19 09:58 Dose: 40 mg - Labs Labs: 02/06/19 07:06 02/07/19 08:14 PT 10.6 SECONDS (9.7-12.2) 02/06/19 08:02 INR 1.0 02/06/19 08:02 APTT 31.2 SECONDS (21-34) 02/06/19 08:02 - Constitutional Appears: No Acute Distress, Chronically Ill - Head Exam Head Exam: ATRAUMATIC, NORMAL INSPECTION - Eye Exam Eye Exam: EOMI, Normal appearance - Neck Exam Neck Exam: Normal Inspection. absent: Tenderness - Respiratory Exam Respiratory Exam: Clear to Ausculation Bilateral, NORMAL BREATHING PATTERN - Cardiovascular Exam Cardiovascular Exam: REGULAR RHYTHM, +S1 - GI/Abdominal Exam GI & Abdominal Exam: Soft. absent: Tenderness - Extremities Exam Extremities Exam: Normal Inspection. absent: Tenderness - Neurological Exam Neurological Exam: Awake, CN II-XII Intact - Skin Skin Exam: Dry, Warm Assessment and Plan (1) HTN (hypertension) Status: Acute (2) NSAIDs adverse reaction Status: Acute (3) STERLING (acute kidney injury) Status: Acute (4) Hyponatremia Status: Acute - Assessment and Plan (Free Text) Plan: same po fluid restriction GI eval as necessary
--- NOTE | 2019-02-07 12:08 | CP.PCM.PN ---
Subjective - Date & Time of Evaluation Date of Evaluation: 02/07/19 Time of Evaluation: 12:06 - Subjective Subjective: f/u abd pain. Feeling better. Less pain. + BMs. Passing gas per rectum. Denies fever, chills, SZ. LOC, OSEGUERA, cough, CP, SOB, RB, melena Objective - Vital Signs/Intake and Output Vital Signs (last 24 hours): Temp Pulse Resp BP Pulse Ox 98.2 F 74 20 143/83 99 02/07/19 07:47 02/07/19 07:47 02/07/19 07:47 02/07/19 09:00 02/07/19 07:47 Intake and Output: 02/07/19 02/07/19 06:59 18:59 Intake Total 2500 400 Balance 2500 400 - Medications Medications: Current Medications Al Hydrox/Mg Hydrox/Simethicone (Maalox 30 Ml) 30 ml PO Q6H PRN PRN Reason: Indigestion / Heartburn Last Admin: 02/07/19 02:35 Dose: 30 ml Amlodipine Besylate (Norvasc) 5 mg PO DAILY [facility] Last Admin: 02/07/19 09:59 Dose: Not Given Enoxaparin Sodium (Lovenox) 30 mg SC DAILY [facility] Last Admin: 02/07/19 09:58 Dose: 30 mg Lactulose (Enulose) 20 gm PO BID [facility] Last Admin: 02/07/19 09:58 Dose: 20 gm Metoprolol Succinate (Toprol Xl) 100 mg PO Q24H [facility] Last Admin: 02/07/19 08:09 Dose: 100 mg Morphine Sulfate (Morphine) 2 mg IVP Q6 PRN PRN Reason: Pain, severe (8-10) Last Admin: 02/07/19 10:01 Dose: 2 mg Pantoprazole Sodium (Protonix Ec Tab) 40 mg PO DAILY [facility] Last Admin: 02/07/19 09:58 Dose: 40 mg - Labs Labs: 02/06/19 07:06 02/07/19 08:14 PT 10.6 SECONDS (9.7-12.2) 02/06/19 08:02 INR 1.0 02/06/19 08:02 APTT 31.2 SECONDS (21-34) 02/06/19 08:02 - Constitutional Appears: Well - Respiratory Exam Respiratory Exam: Clear to Ausculation Bilateral - Cardiovascular Exam Cardiovascular Exam: RRR - GI/Abdominal Exam GI & Abdominal Exam: Soft, Normal Bowel Sounds. absent: Guarding, Tenderness, Mass, Rebound - Neurological Exam Neurological Exam: Alert, Awake, Oriented x3 Assessment and Plan (1) STERLING (acute kidney injury) Status: Acute (2) Abdominal pain Status: Acute (3) HTN (hypertension) Status: Acute (4) Hyponatremia Status: Acute (5) Large bowel obstruction Assessment & Plan: Improving. Rec- advance diet Status: Acute (6) Nonspecific elevation of levels of transaminase and lactic acid dehydrogenase [ldh] Status: Acute (7) Abnormal finding on CT scan Status: Acute
--- NOTE | 2019-02-07 14:31 | RAD ---
Date of service: 02/07/2019 HISTORY: SOB COMPARISON: Comparison made with prior chest radiograph 09/25/2012 TECHNIQUE: Chest PA and lateral views FINDINGS: LUNGS: No active pulmonary disease. PLEURA: No significant pleural effusion identified. No pneumothorax apparent. CARDIOVASCULAR: No aortic atherosclerotic calcification present. Cardiomegaly. No pulmonary vascular congestion. OSSEOUS STRUCTURES: No significant abnormalities. VISUALIZED UPPER ABDOMEN: Normal. OTHER FINDINGS: None. IMPRESSION: No active disease.
--- NOTE | 2019-02-07 19:30 | CP.PCM.PN ---
Subjective - Date & Time of Evaluation Date of Evaluation: 02/07/19 Objective - Vital Signs/Intake and Output Vital Signs (last 24 hours): Temp Pulse Resp BP Pulse Ox 98.7 F 79 20 164/102 H 97 02/07/19 16:00 02/07/19 17:31 02/07/19 16:00 02/07/19 17:31 02/07/19 16:00 Intake and Output: 02/07/19 02/08/19 18:59 06:59 Intake Total 850 Balance 850 - Medications Medications: Current Medications Al Hydrox/Mg Hydrox/Simethicone (Maalox 30 Ml) 30 ml PO Q6H PRN PRN Reason: Indigestion / Heartburn Last Admin: 02/07/19 02:35 Dose: 30 ml Amlodipine Besylate (Norvasc) 10 mg PO DAILY [facility] Enoxaparin Sodium (Lovenox) 30 mg SC DAILY [facility] Last Admin: 02/07/19 09:58 Dose: 30 mg Hydrochlorothiazide (Microzide) 12.5 mg PO DAILY [facility] Last Admin: 02/07/19 18:44 Dose: 12.5 mg Lactulose (Enulose) 20 gm PO BID [facility] Last Admin: 02/07/19 17:36 Dose: 20 gm Metoprolol Succinate (Toprol Xl) 100 mg PO Q24H [facility] Last Admin: 02/07/19 08:09 Dose: 100 mg Morphine Sulfate (Morphine) 2 mg IVP Q6 PRN PRN Reason: Pain, severe (8-10) Last Admin: 02/07/19 16:13 Dose: 2 mg Pantoprazole Sodium (Protonix Ec Tab) 40 mg PO DAILY [facility] Last Admin: 02/07/19 09:58 Dose: 40 mg - Labs Labs: 02/06/19 07:06 02/07/19 08:14 PT 10.6 SECONDS (9.7-12.2) 02/06/19 08:02 INR 1.0 02/06/19 08:02 APTT 31.2 SECONDS (21-34) 02/06/19 08:02
[2019-02-07] MEDS ORDERED: Metoprolol 1 mg/ml Inj IVP ONE (21:49)
--- NOTE | 2019-02-07 21:53 | PCM.RRT ---
BRUSHING MACHINE OPERATOR Nurses Assessment - Situation Date: 02/07/19 Time BRUSHING MACHINE OPERATOR was called: 09:42 BRUSHING MACHINE OPERATOR Location:: 3T Med/Oncology BRUSHING MACHINE OPERATOR Reason for Call: Hypertension BRUSHING MACHINE OPERATOR Called By: RN - IV IV Inserted during BRUSHING MACHINE OPERATOR?: No - Respiratory BRUSHING MACHINE OPERATOR Delivery Method: Room Air - Ventilator Settings Peak Flow: 200 - Recommendations 5) BRUSHING MACHINE OPERATOR Level of Care Recommendations: Transfer to Telemetry I.Reason for BRUSHING MACHINE OPERATOR - A) Acute Change in Patient: Subjective: BRUSHING MACHINE OPERATOR was called to eval pt for HTN. Upon arrival to scene, measured BP was 202/127. Pt stated that he was c/o generalized OSEGUERA but denied chest pain, vision changes, dizziness, numbness/tingling in extremities, or other symptoms. States he has hx of uncontrolled BPs, currently on 3 medications inpatient. Per staff, pt's BP was uncontrolled during the day requiring stat doses of medications. - Neurological Status (Select all that apply): Alert, Responsive, Oriented, Verbal, Follows Commands - Respiratory Oxygen Delivery Method: Room Air - Constitutional Appears: Non-toxic, No Acute Distress - Head Head Exam: ATRAUMATIC, NORMOCEPHALIC - Eyes Eye Exam: EOMI, Normal appearance, PERRL - Respiratory Exam Respiratory Exam: Clear to Ausculation Bilateral, NORMAL BREATHING PATTERN. absent: Rales, Rhonchi, Wheezes - Cardiovascular Exam Cardiovascular Exam: REGULAR RHYTHM, +S1, +S2. absent: Gallop, Rubs, Murmur - GI/Abdominal Exam GI & Abdominal Exam: Soft, Normal Bowel Sounds. absent: Distended, Tenderness, Organomegaly - Neurological Exam Neurological Exam: Alert, Awake, CN II-XII Intact, Oriented x3 - Extremities Exam Extremities Exam: Full ROM, Normal Capillary Refill, Normal Inspection Plan - Assessment of Findings&Treatment Plan Assessment: Hypertensive Urgency likely 2/2 uncontrolled BP Plan: Lopressor 5 mg IVP x1. Clonidine 0.1 mg q8h prn added if pt has additional elevated BPs > 160 systolic on floor. Pt transferred to telemetry floor for further monitoring for arrhythmias on desk monitor. Attending physician, Dr. Jack Gomez, present at bedside during BRUSHING MACHINE OPERATOR. Plan d/w Dr. Gomez.
[2019-02-08] MEDS ORDERED: Dextrose 50% SYRINGE Inj (50 ml) IVP PRN (00:58)
[2019-02-08] MEDS ORDERED: Glucagon Recombinant 1 mg Inj IM PRN (00:58)
[2019-02-08] MEDS ORDERED: Dextrose 50% SYRINGE Inj (50 ml) IV PRN (00:58)
[2019-02-08 01:31] LABS: CK-MB 1.31 ng/mL (0.0-3.38)
[2019-02-08 03:02] LABS: BARBITURATES, UR NEGATIVE (NEGATIVE); BENZODIAZEPINES, UR NEGATIVE (NEGATIVE); PHENCYCLIDINE, UR NEGATIVE (NEGATIVE)
[2019-02-08 03:03] LABS: OPIATES, UR POSITIVE (NEGATIVE)
[2019-02-08] MEDS ORDERED: (Novolog) Insulin Aspart, Recombinant 100 u/ml 10 ml vial SC SCH (07:30)
[2019-02-08] MEDS: Metoprolol Succinate 100 mg XL Tab PO SCH (07:57)
[2019-02-08] MEDS: Pantoprazole 40 mg EC Tab PO SCH (09:21)
[2019-02-08] MEDS: Enoxaparin 30 mg Syringe SC SCH (09:25)
--- NOTE | 2019-02-08 09:30 | CP.PCM.PN ---
Subjective - Date & Time of Evaluation Date of Evaluation: 02/08/19 Time of Evaluation: 09:27 - Subjective Subjective: pt seen and examined events form last night noted [facility] called for elevated BP given IV labetalol BP better this morning still with headaches no nausea or vomiting labs pending ROS- no abdominal pin , no blurry vision as per HPI , rest 10 point ROS negative Objective - Vital Signs/Intake and Output Vital Signs (last 24 hours): Temp Pulse Resp BP Pulse Ox 97.9 F 69 18 150/97 H 98 02/08/19 07:45 02/08/19 07:55 02/08/19 07:45 02/08/19 07:45 02/08/19 07:45 Intake and Output: 02/08/19 02/08/19 06:59 18:59 Intake Total 240 Balance 240 - Medications Medications: Current Medications Acetaminophen (Tylenol 325mg Tab) 650 mg PO Q6 PRN PRN Reason: Other Last Admin: 02/08/19 08:21 Dose: 650 mg Al Hydrox/Mg Hydrox/Simethicone (Maalox 30 Ml) 30 ml PO Q6H PRN PRN Reason: Indigestion / Heartburn Last Admin: 02/07/19 02:35 Dose: 30 ml Amlodipine Besylate (Norvasc) 10 mg PO DAILY [facility] Last Admin: 02/08/19 09:21 Dose: 10 mg Clonidine HCl (Catapres) 0.1 mg PO Q8H PRN PRN Reason: Systolic Blood Pressure Last Admin: 02/08/19 07:00 Dose: 0.1 mg Dextrose (Dextrose 50% Inj) 50 ml IVP ONCE PRN PRN Reason: Hypoglycemia Dextrose (Dextrose 50% Inj) 0 ml IV STAT PRN; Protocol PRN Reason: Hypoglycemia Protocol Dextrose (Glutose 15) 0 gm PO ONCE PRN; Protocol PRN Reason: Hypoglycemia Protocol Enoxaparin Sodium (Lovenox) 30 mg SC DAILY [facility] Last Admin: 02/07/19 09:58 Dose: 30 mg Glucagon (Glucagen Diagnostic Kit) 0 mg IM STAT PRN; Protocol PRN Reason: Hypoglycemia Protocol Hydralazine HCl (Apresoline) 10 mg IVP Q6H PRN PRN Reason: Systolic Blood Pressure Hydrochlorothiazide (Microzide) 12.5 mg PO DAILY [facility] Last Admin: 02/08/19 09:21 Dose: 12.5 mg Dextrose (Dextrose 5% In Water 1000 Ml) 1,000 mls @ 0 mls/hr IV .Q0M PRN; Protocol PRN Reason: Hypoglycemia Protocol Insulin Aspart (Novolog) 0 unit SC ACHS [facility]; Protocol Lactulose (Enulose) 20 gm PO BID [facility] Last Admin: 02/07/19 17:36 Dose: 20 gm Metoprolol Succinate (Toprol Xl) 100 mg PO Q24H [facility] Last Admin: 02/08/19 07:57 Dose: 100 mg Morphine Sulfate (Morphine) 2 mg IVP Q6 PRN PRN Reason: Pain, severe (8-10) Last Admin: 02/08/19 00:12 Dose: 2 mg Pantoprazole Sodium (Protonix Ec Tab) 40 mg PO DAILY [facility] Last Admin: 02/08/19 09:21 Dose: 40 mg - Labs Labs: 02/06/19 07:06 02/07/19 08:14 PT 10.6 SECONDS (9.7-12.2) 02/06/19 08:02 INR 1.0 02/06/19 08:02 APTT 31.2 SECONDS (21-34) 02/06/19 08:02 - Constitutional Appears: Well, Non-toxic - Head Exam Head Exam: ATRAUMATIC, NORMOCEPHALIC - Eye Exam Eye Exam: EOMI, PERRL - ENT Exam ENT Exam: Mucous Membranes Moist - Neck Exam Neck Exam: Full ROM - Respiratory Exam Respiratory Exam: Clear to Ausculation Bilateral. absent: Rhonchi, Wheezes - Cardiovascular Exam Cardiovascular Exam: REGULAR RHYTHM, +S1, +S2 - GI/Abdominal Exam GI & Abdominal Exam: Distended, Soft. absent: Tenderness - Extremities Exam Extremities Exam: Full ROM. absent: Pedal Edema - Neurological Exam Neurological Exam: Alert, Awake, Oriented x3 - Psychiatric Exam Psychiatric exam: Normal Affect, Normal Mood - Skin Skin Exam: Intact, Warm Assessment and Plan (1) STERLING (acute kidney injury) Status: Acute (2) HTN (hypertension) Status: Acute (3) Hyponatremia Status: Acute (4) NSAIDs adverse reaction Status: Acute (5) Nonspecific elevation of levels of transaminase and lactic acid dehydrogenase [ldh] Status: Acute - Assessment and Plan (Free Text) Plan: sterling resolved no new labs today - will order check sodium level continue metoprolol, if bp high, add amlodipine d/c HCTZ given hyponatremia
--- NOTE | 2019-02-08 11:18 | CP.PCM.PN ---
Subjective - Date & Time of Evaluation Date of Evaluation: 02/08/19 Time of Evaluation: 10:30 - Subjective Subjective: f/u ileus, abdom pain. Reports abd is better. Passing stool. Denies fever, chills, SZ, RB, melena, hematuria, CP, SOB BP has been eelvated- being treated Objective - Vital Signs/Intake and Output Vital Signs (last 24 hours): Temp Pulse Resp BP Pulse Ox 97.9 F 69 18 150/97 H 98 02/08/19 07:45 02/08/19 07:55 02/08/19 07:45 02/08/19 07:45 02/08/19 07:45 Intake and Output: 02/08/19 02/08/19 06:59 18:59 Intake Total 240 Balance 240 - Medications Medications: Current Medications Acetaminophen (Tylenol 325mg Tab) 650 mg PO Q6 PRN PRN Reason: Other Last Admin: 02/08/19 08:21 Dose: 650 mg Al Hydrox/Mg Hydrox/Simethicone (Maalox 30 Ml) 30 ml PO Q6H PRN PRN Reason: Indigestion / Heartburn Last Admin: 02/07/19 02:35 Dose: 30 ml Amlodipine Besylate (Norvasc) 10 mg PO DAILY [facility] Last Admin: 02/08/19 09:21 Dose: 10 mg Clonidine HCl (Catapres) 0.1 mg PO Q8H PRN PRN Reason: Systolic Blood Pressure Last Admin: 02/08/19 07:00 Dose: 0.1 mg Dextrose (Dextrose 50% Inj) 50 ml IVP ONCE PRN PRN Reason: Hypoglycemia Dextrose (Dextrose 50% Inj) 0 ml IV STAT PRN; Protocol PRN Reason: Hypoglycemia Protocol Dextrose (Glutose 15) 0 gm PO ONCE PRN; Protocol PRN Reason: Hypoglycemia Protocol Enoxaparin Sodium (Lovenox) 30 mg SC DAILY [facility] Last Admin: 02/07/19 09:58 Dose: 30 mg Glucagon (Glucagen Diagnostic Kit) 0 mg IM STAT PRN; Protocol PRN Reason: Hypoglycemia Protocol Hydralazine HCl (Apresoline) 10 mg IVP Q6H PRN PRN Reason: Systolic Blood Pressure Dextrose (Dextrose 5% In Water 1000 Ml) 1,000 mls @ 0 mls/hr IV .Q0M PRN; Protocol PRN Reason: Hypoglycemia Protocol Insulin Aspart (Novolog) 0 unit SC ACHS [facility]; Protocol Lactulose (Enulose) 20 gm PO BID [facility] Last Admin: 02/07/19 17:36 Dose: 20 gm Metoprolol Succinate (Toprol Xl) 100 mg PO Q24H [facility] Last Admin: 02/08/19 07:57 Dose: 100 mg Morphine Sulfate (Morphine) 2 mg IVP Q6 PRN PRN Reason: Pain, severe (8-10) Last Admin: 02/08/19 00:12 Dose: 2 mg Pantoprazole Sodium (Protonix Ec Tab) 40 mg PO DAILY [facility] Last Admin: 02/08/19 09:21 Dose: 40 mg - Labs Labs: 02/06/19 07:06 02/07/19 08:14 PT 10.6 SECONDS (9.7-12.2) 02/06/19 08:02 INR 1.0 02/06/19 08:02 APTT 31.2 SECONDS (21-34) 02/06/19 08:02 - Constitutional Appears: Well, Non-toxic - Respiratory Exam Respiratory Exam: Clear to Ausculation Bilateral - Cardiovascular Exam Cardiovascular Exam: RRR - GI/Abdominal Exam GI & Abdominal Exam: Soft, Normal Bowel Sounds. absent: Guarding, Tenderness, Hernia, Mass, Rebound - Neurological Exam Neurological Exam: Alert, Oriented x3 Assessment and Plan (1) STERLING (acute kidney injury) Status: Acute (2) Abdominal pain Assessment & Plan: better Status: Acute (3) HTN (hypertension) Status: Acute (4) Hyponatremia Status: Acute (5) Large bowel obstruction Assessment & Plan: improved. Status: Acute (6) Nonspecific elevation of levels of transaminase and lactic acid dehydrogenase [ldh] Assessment & Plan: LFTs improving Status: Acute (7) Abnormal finding on CT scan Assessment & Plan: Discussed colonsocopy as outpatient. Patient instructed to call for appointment. Status: Acute
[2019-02-08 11:49] LABS: BLOOD UREA NITROGEN 6 mg/dL (9-20); CALCIUM 8.9 mg/dl (8.6-10.4); GFR NON-AFRICAN AMERICAN > 60
--- NOTE | 2019-02-08 11:57 | CP.PCM.PN ---
Subjective - Date & Time of Evaluation Date of Evaluation: 02/08/19 Time of Evaluation: 11:53 - Subjective Subjective: CHART REVIEWED. PT SEEN AND EXAMINED. COVERING DR Adrian MACIAS PT ALERT, +H/A. ROS; OTHERWISE NEG. Objective - Vital Signs/Intake and Output Vital Signs (last 24 hours): Temp Pulse Resp BP Pulse Ox 97.9 F 72 18 153/102 H 98 02/08/19 07:45 02/08/19 11:47 02/08/19 07:45 02/08/19 11:47 02/08/19 07:45 Intake and Output: 02/08/19 02/08/19 06:59 18:59 Intake Total 240 Balance 240 - Medications Medications: Current Medications Acetaminophen (Tylenol 325mg Tab) 650 mg PO Q6 PRN PRN Reason: Other Last Admin: 02/08/19 08:21 Dose: 650 mg Al Hydrox/Mg Hydrox/Simethicone (Maalox 30 Ml) 30 ml PO Q6H PRN PRN Reason: Indigestion / Heartburn Last Admin: 02/07/19 02:35 Dose: 30 ml Amlodipine Besylate (Norvasc) 10 mg PO DAILY [facility] Last Admin: 02/08/19 09:21 Dose: 10 mg Clonidine HCl (Catapres) 0.1 mg PO Q8H PRN PRN Reason: Systolic Blood Pressure Last Admin: 02/08/19 07:00 Dose: 0.1 mg Dextrose (Dextrose 50% Inj) 50 ml IVP ONCE PRN PRN Reason: Hypoglycemia Dextrose (Dextrose 50% Inj) 0 ml IV STAT PRN; Protocol PRN Reason: Hypoglycemia Protocol Dextrose (Glutose 15) 0 gm PO ONCE PRN; Protocol PRN Reason: Hypoglycemia Protocol Enoxaparin Sodium (Lovenox) 30 mg SC DAILY [facility] Last Admin: 02/08/19 09:25 Dose: 30 mg Glucagon (Glucagen Diagnostic Kit) 0 mg IM STAT PRN; Protocol PRN Reason: Hypoglycemia Protocol Hydralazine HCl (Apresoline) 10 mg IVP Q6H PRN PRN Reason: Systolic Blood Pressure Dextrose (Dextrose 5% In Water 1000 Ml) 1,000 mls @ 0 mls/hr IV .Q0M PRN; Protocol PRN Reason: Hypoglycemia Protocol Insulin Aspart (Novolog) 0 unit SC ACHS [facility]; Protocol Lactulose (Enulose) 20 gm PO BID [facility] Last Admin: 02/08/19 09:25 Dose: 20 gm Metoprolol Succinate (Toprol Xl) 100 mg PO Q24H [facility] Last Admin: 02/08/19 07:57 Dose: 100 mg Morphine Sulfate (Morphine) 2 mg IVP Q6 PRN PRN Reason: Pain, severe (8-10) Last Admin: 02/08/19 00:12 Dose: 2 mg Pantoprazole Sodium (Protonix Ec Tab) 40 mg PO DAILY [facility] Last Admin: 02/08/19 09:21 Dose: 40 mg - Labs Labs: 02/06/19 07:06 02/08/19 10:50 PT 10.6 SECONDS (9.7-12.2) 02/06/19 08:02 INR 1.0 02/06/19 08:02 APTT 31.2 SECONDS (21-34) 02/06/19 08:02 - Constitutional Appears: No Acute Distress - Head Exam Head Exam: ATRAUMATIC, NORMOCEPHALIC - Eye Exam Eye Exam: EOMI, Normal appearance - ENT Exam ENT Exam: Mucous Membranes Moist - Neck Exam Neck Exam: Normal Inspection - Respiratory Exam Respiratory Exam: absent: Wheezes, Respiratory Distress - Cardiovascular Exam Cardiovascular Exam: RRR, +S1, +S2 - GI/Abdominal Exam GI & Abdominal Exam: Soft. absent: Tenderness - Rectal Exam Rectal Exam: Deferred - Extremities Exam Extremities Exam: absent: Calf Tenderness, Pedal Edema - Back Exam Back Exam: absent: CVA tenderness (L), CVA tenderness (R) - Neurological Exam Neurological Exam: Alert, Awake, CN II-XII Intact, Normal Gait, Oriented x3 - Psychiatric Exam Psychiatric exam: Normal Mood - Skin Skin Exam: absent: Rash Assessment and Plan (1) Alcohol abuse Status: Acute (2) STERLING (acute kidney injury) Status: Acute (3) HTN (hypertension) Status: Acute (4) Large bowel obstruction Status: Acute (5) NSAIDs adverse reaction Status: Acute - Assessment and Plan (Free Text) Assessment: RESP STATUS COMFORTABLE., BP BETTER CONTROLLED. CXR REVIEWD. TOLERATING PO DIET. GI F/U NOTED. STERLING IMPROVED, RENAL F/U NOTED. DISCUSSED WITH STAFF AT LENGTH. TIME SPENT 40 MIN.,
[2019-02-08 13:52] LABS: ALB/GLOB RATIO 1.3 (1.0-2.1); ALBUMIN 4.5 g/dL (3.5-5.0); ALT/SGPT 112 U/L (21-72); AST/SGOT 83 U/L (17-59); BILIRUBIN,DIRECT 0.4 mg/dL (0.0-0.4)
[2019-02-08] MEDS: Aluminum Hydroxide/Magnesium Hydroxide Susp (30 mL) PO PRN (18:20)
[2019-02-09] MEDS: Metoprolol Succinate 100 mg XL Tab PO SCH (08:50)
[2019-02-09] MEDS: Pantoprazole 40 mg EC Tab PO SCH (09:54)
[2019-02-09] MEDS: Enoxaparin 30 mg Syringe SC SCH (09:55)
[2019-02-09 14:26] LABS: ALB/GLOB RATIO 1.2 (1.0-2.1); ALBUMIN 4.5 g/dL (3.5-5.0); ALT/SGPT 124 U/L (21-72); AST/SGOT 98 U/L (17-59); BLOOD UREA NITROGEN 9 mg/dL (9-20); CALCIUM 9.4 mg/dl (8.6-10.4); GFR NON-AFRICAN AMERICAN > 60
[2019-02-09 17:09] VITALS: RESP 20
--- NOTE | 2019-02-09 18:47 | CP.PCM.PN ---
Subjective - Date & Time of Evaluation Date of Evaluation: 02/09/19 - Subjective Subjective: patient seen and examined today no nausea no vomiting no dizziness no diarrhea no fever no shortness of breath Objective - Vital Signs/Intake and Output Vital Signs (last 24 hours): Temp Pulse Resp BP Pulse Ox 97.9 F 105 H 20 148/96 H 100 02/09/19 15:00 02/09/19 15:46 02/09/19 15:00 02/09/19 15:00 02/09/19 15:00 Intake and Output: 02/09/19 02/09/19 06:59 18:59 Intake Total 500 Balance 500 - Medications Medications: Current Medications Acetaminophen (Tylenol 325mg Tab) 650 mg PO Q6 PRN PRN Reason: Other Last Admin: 02/09/19 06:32 Dose: 650 mg Al Hydrox/Mg Hydrox/Simethicone (Maalox 30 Ml) 30 ml PO Q6H PRN PRN Reason: Indigestion / Heartburn Last Admin: 02/08/19 18:20 Dose: 30 ml Amlodipine Besylate (Norvasc) 10 mg PO DAILY [facility] Last Admin: 02/09/19 09:54 Dose: 10 mg Clonidine HCl (Catapres) 0.1 mg PO Q8H PRN PRN Reason: Systolic Blood Pressure Last Admin: 02/09/19 14:27 Dose: 0.1 mg Dextrose (Dextrose 50% Inj) 50 ml IVP ONCE PRN PRN Reason: Hypoglycemia Dextrose (Dextrose 50% Inj) 0 ml IV STAT PRN; Protocol PRN Reason: Hypoglycemia Protocol Dextrose (Glutose 15) 0 gm PO ONCE PRN; Protocol PRN Reason: Hypoglycemia Protocol Enoxaparin Sodium (Lovenox) 30 mg SC DAILY [facility] Last Admin: 02/09/19 09:55 Dose: 30 mg Glucagon (Glucagen Diagnostic Kit) 0 mg IM STAT PRN; Protocol PRN Reason: Hypoglycemia Protocol Hydralazine HCl (Apresoline) 10 mg IVP Q6H PRN PRN Reason: Systolic Blood Pressure Last Admin: 02/08/19 21:01 Dose: 10 mg Dextrose (Dextrose 5% In Water 1000 Ml) 1,000 mls @ 0 mls/hr IV .Q0M PRN; Protocol PRN Reason: Hypoglycemia Protocol Lactulose (Enulose) 20 gm PO BID [facility] Last Admin: 02/09/19 09:54 Dose: 20 gm Lorazepam (Ativan) 0.5 mg PO TID PRN PRN Reason: Agitation Metoprolol Succinate (Toprol Xl) 100 mg PO Q24H [facility] Last Admin: 02/09/19 08:50 Dose: 100 mg Pantoprazole Sodium (Protonix Ec Tab) 40 mg PO DAILY [facility] Last Admin: 02/09/19 09:54 Dose: 40 mg - Labs Labs: 02/06/19 07:06 02/09/19 13:31 PT 10.6 SECONDS (9.7-12.2) 02/06/19 08:02 INR 1.0 02/06/19 08:02 APTT 31.2 SECONDS (21-34) 02/06/19 08:02 - Constitutional Appears: Well - Head Exam Head Exam: ATRAUMATIC, NORMAL INSPECTION, NORMOCEPHALIC - Eye Exam Eye Exam: EOMI, Normal appearance, PERRL Pupil Exam: NORMAL ACCOMODATION, PERRL - ENT Exam ENT Exam: Mucous Membranes Moist, Normal Exam - Neck Exam Neck Exam: Full ROM, Normal Inspection. absent: Lymphadenopathy - Respiratory Exam Respiratory Exam: Decreased Breath Sounds - Cardiovascular Exam Cardiovascular Exam: REGULAR RHYTHM, +S1, +S2 - GI/Abdominal Exam GI & Abdominal Exam: Soft, Diminished Bowel Sounds - Rectal Exam Rectal Exam: Deferred - Neurological Exam Neurological Exam: Oriented x3 Assessment and Plan - Assessment and Plan (Free Text) Plan: plan discussed with patient moderate complexity of care apresoline ativan catapress dextrose 50% dextrose5% enulose glucagen diagnostic kit glutose 15 lovenox maalox norvasc protonix ec tab toprol xl tylenol labs and vitals reviewed
[2019-02-10] MEDS: Metoprolol Succinate 100 mg XL Tab PO SCH (07:47)
[2019-02-10 07:50] VITALS: TEMP 97.9; O2SAT 94
[2019-02-10] MEDS: Pantoprazole 40 mg EC Tab PO SCH (09:48)
[2019-02-10] MEDS: Enoxaparin 30 mg Syringe SC SCH (09:48)
--- NOTE | 2019-02-10 11:16 | CP.PCM.PN ---
Subjective - Date & Time of Evaluation Date of Evaluation: 02/10/19 Time of Evaluation: 11:13 - Subjective Subjective: says abdomen is less painful tolerating po good urine production no chest pain no sob no edema no v/d no fever or chills no rash no arthralgias Objective - Vital Signs/Intake and Output Vital Signs (last 24 hours): Temp Pulse Resp BP Pulse Ox 97.9 F 81 20 163/103 H 94 L 02/10/19 07:00 02/10/19 09:54 02/10/19 07:00 02/10/19 09:54 02/10/19 07:00 - Medications Medications: Current Medications Acetaminophen (Tylenol 325mg Tab) 650 mg PO Q6 PRN PRN Reason: Other Last Admin: 02/10/19 03:56 Dose: 650 mg Al Hydrox/Mg Hydrox/Simethicone (Maalox 30 Ml) 30 ml PO Q6H PRN PRN Reason: Indigestion / Heartburn Last Admin: 02/08/19 18:20 Dose: 30 ml Amlodipine Besylate (Norvasc) 10 mg PO DAILY [facility] Last Admin: 02/10/19 09:48 Dose: 10 mg Clonidine HCl (Catapres) 0.1 mg PO Q8H PRN PRN Reason: Systolic Blood Pressure Last Admin: 02/09/19 14:27 Dose: 0.1 mg Dextrose (Dextrose 50% Inj) 50 ml IVP ONCE PRN PRN Reason: Hypoglycemia Dextrose (Dextrose 50% Inj) 0 ml IV STAT PRN; Protocol PRN Reason: Hypoglycemia Protocol Dextrose (Glutose 15) 0 gm PO ONCE PRN; Protocol PRN Reason: Hypoglycemia Protocol Enoxaparin Sodium (Lovenox) 30 mg SC DAILY [facility] Last Admin: 02/10/19 09:48 Dose: 30 mg Glucagon (Glucagen Diagnostic Kit) 0 mg IM STAT PRN; Protocol PRN Reason: Hypoglycemia Protocol Hydralazine HCl (Apresoline) 10 mg IVP Q6H PRN PRN Reason: Systolic Blood Pressure Last Admin: 02/10/19 09:53 Dose: 10 mg Dextrose (Dextrose 5% In Water 1000 Ml) 1,000 mls @ 0 mls/hr IV .Q0M PRN; Pr otocol PRN Reason: Hypoglycemia Protocol Lactulose (Enulose) 20 gm PO BID [facility] Last Admin: 02/10/19 09:48 Dose: 20 gm Lorazepam (Ativan) 0.5 mg PO TID PRN PRN Reason: Agitation Last Admin: 02/10/19 00:25 Dose: 0.5 mg Metoprolol Succinate (Toprol Xl) 100 mg PO Q24H [facility] Last Admin: 02/10/19 07:47 Dose: 100 mg Pantoprazole Sodium (Protonix Ec Tab) 40 mg PO DAILY [facility] Last Admin: 02/10/19 09:48 Dose: 40 mg - Labs Labs: 02/06/19 07:06 02/09/19 13:31 PT 10.6 SECONDS (9.7-12.2) 02/06/19 08:02 INR 1.0 02/06/19 08:02 APTT 31.2 SECONDS (21-34) 02/06/19 08:02 - Constitutional Appears: Non-toxic, No Acute Distress - Head Exam Head Exam: ATRAUMATIC - Eye Exam Eye Exam: EOMI, Normal appearance - ENT Exam ENT Exam: Mucous Membranes Moist - Neck Exam Neck Exam: Full ROM. absent: Lymphadenopathy - Respiratory Exam Respiratory Exam: Decreased Breath Sounds. absent: Accessory Muscle Use - Cardiovascular Exam Cardiovascular Exam: REGULAR RHYTHM. absent: Rubs - GI/Abdominal Exam GI & Abdominal Exam: Distended. absent: Tenderness - Extremities Exam Extremities Exam: absent: Pedal Edema - Neurological Exam Neurological Exam: Alert, Awake Assessment and Plan - Assessment and Plan (Free Text) Assessment: chronic hyponatremia, low urine osmolarity, reviewed fluid restriction and increased solute GI follow up of ileus, /liver disease Monitor BP
[2019-02-10 11:58] VITALS: BP 141/93
[2019-02-10 12:00] VITALS: PULSE 89
--- NOTE | 2019-02-10 13:39 | CP.PCM.PN ---
Subjective - Date & Time of Evaluation Date of Evaluation: 02/10/19 Time of Evaluation: 13:38 - Subjective Subjective: PATIENT SEEN AND EXAMINED AT THE BEDSIDE Objective - Vital Signs/Intake and Output Vital Signs (last 24 hours): Temp Pulse Resp BP Pulse Ox 97.9 F 89 20 141/93 H 94 L 02/10/19 07:00 02/10/19 11:58 02/10/19 07:00 02/10/19 10:30 02/10/19 07:00 - Medications Medications: Current Medications Acetaminophen (Tylenol 325mg Tab) 650 mg PO Q6 PRN PRN Reason: Other Last Admin: 02/10/19 03:56 Dose: 650 mg Al Hydrox/Mg Hydrox/Simethicone (Maalox 30 Ml) 30 ml PO Q6H PRN PRN Reason: Indigestion / Heartburn Last Admin: 02/08/19 18:20 Dose: 30 ml Amlodipine Besylate (Norvasc) 10 mg PO DAILY [facility] Last Admin: 02/10/19 09:48 Dose: 10 mg Clonidine HCl (Catapres) 0.1 mg PO Q8H [facility] Dextrose (Dextrose 50% Inj) 50 ml IVP ONCE PRN PRN Reason: Hypoglycemia Dextrose (Dextrose 50% Inj) 0 ml IV STAT PRN; Protocol PRN Reason: Hypoglycemia Protocol Dextrose (Glutose 15) 0 gm PO ONCE PRN; Protocol PRN Reason: Hypoglycemia Protocol Enoxaparin Sodium (Lovenox) 30 mg SC DAILY [facility] Last Admin: 02/10/19 09:48 Dose: 30 mg Glucagon (Glucagen Diagnostic Kit) 0 mg IM STAT PRN; Protocol PRN Reason: Hypoglycemia Protocol Hydralazine HCl (Apresoline) 10 mg IVP Q6H PRN PRN Reason: Systolic Blood Pressure Last Admin: 02/10/19 09:53 Dose: 10 mg Dextrose (Dextrose 5% In Water 1000 Ml) 1,000 mls @ 0 mls/hr IV .Q0M PRN; Protocol PRN Reason: Hypoglycemia Protocol Lactulose (Enulose) 20 gm PO BID [facility] Last Admin: 02/10/19 09:48 Dose: 20 gm Lorazepam (Ativan) 0.5 mg PO TID PRN PRN Reason: Agitation Last Admin: 02/10/19 00:25 Dose: 0.5 mg Metoprolol Succinate (Toprol Xl) 100 mg PO Q24H [facility] Last Admin: 02/10/19 07:47 Dose: 100 mg Pantoprazole Sodium (Protonix Ec Tab) 40 mg PO DAILY [facility] Last Admin: 02/10/19 09:48 Dose: 40 mg - Labs Labs: 02/06/19 07:06 02/09/19 13:31 PT 10.6 SECONDS (9.7-12.2) 02/06/19 08:02 INR 1.0 02/06/19 08:02 APTT 31.2 SECONDS (21-34) 02/06/19 08:02 Assessment and Plan - Assessment and Plan (Free Text) Assessment: FOLLOW UP WITH DR Adrian MACIAS IN HIS OFFICE IN A WEEK ADDRESS YOUR BLOOD PRESSURE MEDCICATION AT YOUR VISIT FOLLOW UP WITH DR MANN AND DR YANES CONTINUE HOME MEDICATION NEW PRESCRIPTION GIVEN AMLODIPINE 10 MG PO DAILY CLONIDINE 0.1 MG PO BID FOR 10 DAYS ACTIVITY TOLERATED CALL DR Adrian MACIAS OR GO TO THE EMERGENCY ROOM IF SYMPTOM RETURN OR WORSENING
--- NOTE | 2019-02-10 15:58 | CARD ---
APPROVED REPORT Date of service: 02/08/2019 EKG Measurement Heart [id number] <Conclusion> Normal sinus rhythm Possible Left atrial enlargement Borderline ECG
--- NOTE | 2019-02-12 01:32 | CP.PCM.DIS ---
Provider - Provider Date of Admission: 02/04/19 23:55 Attending physician: Roz Kendrick MD Consults: 02/05/19 07:00 Nephrology Consult Routine Comment: Consulting Provider: Darvin Mann Consulting Physician: Darvin Mann Reason for Consult: [place] 02/05/19 08:00 Inpatient [employer] Core Measures Referral Routine Comment: Physician Instructions: Reason For Exam: hx of copd,asthma 02/05/19 14:10 Physician Consult Routine Comment: Consulting Provider: Jf Yanes Consulting Physician: Jf Yanes Reason for Consult: abdominal pain/ constipation 02/05/19 19:29 General Surgery Consult Stat Comment: Consulting Provider: Demracus Blanton Consulting Physician: Demarcus Blanton Reason for Consult: cecum measuring 13cm, at risk for cecal perforation Hospital Course - Lab Results Lab Results: Most Recent Lab Values WBC 5.0 K/uL (4.8-10.8) 02/06/19 07:06 RBC 4.16 Mil/uL (4.40-5.90) L 02/06/19 07:06 Hgb 12.9 g/dL (12.0-18.0) 02/06/19 07:06 Hct 36.1 % (35.0-51.0) 02/06/19 07:06 MCV 86.7 fL (80.0-94.0) 02/06/19 07:06 MCH 31.1 pg (27.0-31.0) H 02/06/19 07:06 MCHC 35.9 g/dL (33.0-37.0) 02/06/19 07:06 RDW 13.7 % (11.5-14.5) 02/06/19 07:06 Plt Count 205 K/uL (130-400) 02/06/19 07:06 MPV 7.6 fL (7.2-11.7) 02/06/19 07:06 Neut % (Auto) 53.4 % (50.0-75.0) 02/06/19 07:06 Lymph % (Auto) 31.2 % (20.0-40.0) 02/06/19 07:06 [place] % (Auto) 11.1 % (0.0-10.0) H 02/06/19 07:06 Eos % (Auto) 3.5 % (0.0-4.0) 02/06/19 07:06 Baso % (Auto) 0.8 % (0.0-2.0) 02/06/19 07:06 Neut # (Auto) 2.7 K/uL (1.8-7.0) 02/06/19 07:06 Lymph # (Auto) 1.6 K/uL (1.0-4.3) 02/06/19 07:06 [place] # (Auto) 0.6 K/uL (0.0-0.8) 02/06/19 07:06 Eos # (Auto) 0.2 K/uL (0.0-0.7) 02/06/19 07:06 Baso # (Auto) 0.0 K/uL (0.0-0.2) 02/06/19 07:06 PT 10.6 SECONDS (9.7-12.2) 02/06/19 08:02 INR 1.0 02/06/19 08:02 APTT 31.2 SECONDS (21-34) 02/06/19 08:02 Puncture Site Rra 02/05/19 20:22 pCO2 38 mm/Hg (35-45) 02/05/19 20:22 pO2 59 mm/Hg (80-100) L 02/05/19 20:22 HCO3 26.1 mmol/L (21-28) 02/05/19 20:22 ABG pH 7.44 (7.35-7.45) 02/05/19 20:22 ABG Total CO2 27.0 mmol/L (22-28) 02/05/19 20:22 ABG O2 Saturation 95.4 % (95-98) 02/05/19 20:22 ABG Base Excess 1.7 mmol/L (-2.0-3.0) 02/05/19 20:22 Andre Test Pos 02/05/19 20:22 ABG Potassium 3.4 mmol/L (3.6-5.2) L 02/05/19 20:22 A-a O2 Difference 43.0 mm/Hg 02/05/19 20:22 Respiratory Index 0.7 02/05/19 20:22 Sodium 128.0 mmol/l (132-148) L 02/05/19 20:22 Chloride 98.0 mmol/L (98-107) 02/05/19 20:22 Glucose 102 mg/dl (75-110) 02/05/19 20:22 Lactate 0.7 mmol/L (0.7-2.1) 02/05/19 20:22 FiO2 21.0 % 02/05/19 20:22 Sodium 128 mmol/L (132-148) L 02/09/19 13:31 Potassium 4.0 mmol/L (3.6-5.2) 02/09/19 13:31 Chloride 85 mmol/L (98-107) L 02/09/19 13:31 Carbon Dioxide 29 mmol/L (22-30) 02/09/19 13:31 Anion Gap 17 (10-20) 02/09/19 13:31 BUN 9 mg/dL (9-20) 02/09/19 13:31 Creatinine 0.9 mg/dL (0.8-1.5) 02/09/19 13:31 Est GFR ( Amer) > 60 02/09/19 13:31 Est GFR (Non-Af Amer) > 60 02/09/19 13:31 Random Glucose 116 mg/dL (75-110) H 02/09/19 13:31 Uric Acid 8.5 mg/dL (3.5-8.5) 02/06/19 07:06 Calcium 9.4 mg/dl (8.6-10.4) 02/09/19 13:31 Phosphorus 3.2 mg/dL (2.5-4.5) 02/07/19 08:14 Magnesium 1.7 mg/dL (1.6-2.3) 02/07/19 08:14 Total Bilirubin 1.0 mg/dL (0.2-1.3) 02/09/19 13:31 Direct Bilirubin 0.4 mg/dL (0.0-0.4) 02/08/19 10:50 AST 98 U/L (17-59) H 02/09/19 13:31 ALT 124 U/L (21-72) H 02/09/19 13:31 Alkaline Phosphatase 88 U/L (38-126) 02/09/19 13:31 Total Creatine Kinase 81 U/L (55-170) 02/08/19 01:05 CK-MB (Mass) 1.31 ng/mL (0.0-3.38) 02/08/19 01:05 Troponin I < 0.0120 ng/mL (0.00-0.120) 02/08/19 01:05 Total Protein 8.2 g/dL (6.3-8.3) 02/09/19 13:31 Albumin 4.5 g/dL (3.5-5.0) 02/09/19 13:31 Globulin 3.7 gm/dL (2.2-3.9) 02/09/19 13:31 Albumin/Globulin Ratio 1.2 (1.0-2.1) 02/09/19 13:31 Lipase 79 U/L (23-300) 02/04/19 22:38 Arterial Blood Potassium 3.4 mmol/L (3.6-5.2) L 02/05/19 20:22 Urine Color Yellow (YELLOW) 02/05/19 15:08 Urine Clarity Clear (Clear) 02/05/19 15:08 Urine pH 5.0 (5.0-8.0) 02/05/19 15:08 Ur Specific [place] 1.004 (1.003-1.030) 02/05/19 15:08 Urine Protein Negative mg/dL (NEGATIVE) 02/05/19 15:08 Urine Glucose (UA) Normal mg/dL (Normal) 02/05/19 15:08 Urine Ketones Negative mg/dL (NEGATIVE) 02/05/19 15:08 Urine Blood Negative (NEGATIVE) 02/05/19 15:08 Urine Nitrate Negative (NEGATIVE) 02/05/19 15:08 Urine Bilirubin Negative (NEGATIVE) 02/05/19 15:08 Urine Urobilinogen Normal mg/dL (0.2-1.0) 02/05/19 15:08 Ur Leukocyte Esterase Neg Teresa/uL (Negative) 02/05/19 15:08 Urine WBC (Auto) 1 /hpf (0-5) 02/05/19 15:08 Urine RBC (Auto) < 1 /hpf (0-3) 02/05/19 15:08 Ur Squamous Epith Cells < 1 /hpf (0-5) 02/05/19 15:08 Urine Osmolality 143 mosm/kg (300-1000) L 02/06/19 14:41 U Random Total Protein 13.0 mg/dL (0.0-12.0) H 02/05/19 15:08 Ur Random Sodium 39 mmol/L 02/06/19 14:41 Urine Opiates Screen Positive (NEGATIVE) H 02/08/19 02:41 Urine Methadone Screen Negative (NEGATIVE) 02/08/19 02:41 Ur Barbiturates Screen Negative (NEGATIVE) 02/08/19 02:41 Ur Phencyclidine Scrn Negative (NEGATIVE) 02/08/19 02:41 Ur Amphetamines Screen Negative (NEGATIVE) 02/08/19 02:41 U Benzodiazepines Scrn Negative (NEGATIVE) 02/08/19 02:41 U Oth Cocaine Metabols Negative (NEGATIVE) 02/08/19 02:41 U Cannabinoids Screen Negative (NEGATIVE) 02/08/19 02:41 Blood Type O POSITIVE 02/06/19 07:06 Antibody Screen Negative 02/06/19 07:06 Discharge Exam - Head Exam Head Exam: ATRAUMATIC Discharge Plan - Discharge Medications Prescriptions: cloNIDine [Catapres] 0.1 mg PO BID 10 Days tab amLODIPine [Norvasc] 10 mg PO DAILY 30 Days tab Omeprazole 40 mg PO DAILY #30 capsule.dr - Follow Up Plan Condition: STABLE Disposition: HOME/ ROUTINE Instructions: Heart Healthy Diet, High Blood Pressure (DC), Acute Kidney Failure (DC), Hyponatremia (DC), Amlodipine, Clonidine Additional Instructions: FOLLOW UP WITH DR Adrian KENDRICK IN HIS OFFICE IN A WEEK ADDRESS YOUR BLOOD PRESSURE MEDCICATION AT YOUR VISIT FOLLOW UP WITH DR MANN AND DR YANES CONTINUE HOME MEDICATION NEW PRESCRIPTION GIVEN AMLODIPINE 10 MG PO DAILY CLONIDINE 0.1 MG PO BID FOR 10 DAYS ACTIVITY TOLERATED CALL DR Adrian KENDRICK OR GO TO THE EMERGENCY ROOM IF SYMPTOM RETURN OR WORSENING Referrals: Darvin Mann MD [Staff Provider] - Patricia Kendrick MD [Staff Provider] - Jf Yanes MD [Staff Provider] -
== END 2019-02-10 14:25 | disposition home or self-care (01) | DRG 552 ==
LOC: C.ER 20:54 → C.3T 23:55 → C.5S 02-08 01:37
PROVIDERS: ADMIT Internal Medicine Nephrology; ATTEND Internal Medicine Nephrology
DX: K63.89 Other specified diseases of intestine (principal); N17.9 Acute kidney failure, unspecified; E86.0 Dehydration; E87.1 Hypo-osmolality and hyponatremia; K92.2 Gastrointestinal hemorrhage, unspecified; K56.7 Ileus, unspecified; E78.00 Pure hypercholesterolemia, unspecified; T39.395A Adverse effect of other nonsteroidal anti-inflammatory drugs [NSAID], initial encounter; F32.9 Major depressive disorder, single episode, unspecified; I10 Essential (primary) hypertension; K58.9 Irritable bowel syndrome, unspecified; M19.90 Unspecified osteoarthritis, unspecified site; K70.10 Alcoholic hepatitis without ascites; F41.9 Anxiety disorder, unspecified; Z87.891 Personal history of nicotine dependence